=== PATIENT | female | born 1960 | race Caucasian/White ===

== ENCOUNTER 2017-02-15 16:03 | Inpatient (IN) ==
--- NOTE | 2017-02-15 16:21 | Emergency Department Note ---
Disposition Clinical Impression: Alcohol abuse, Opioid abuse, Tobacco abuse, Hyponatremia Disposition: Admitted As Inpatient Condition: Fair General Adult HPI - General Chief complaint: ED Alcohol Abuse Stated complaint: withdrawal from etoh and suboxone Time Seen by Provider: 02/15/17 16:16 Source: patient, family Limitations: no limitations - History of Present Illness Pain Scale: 0 - Related Data Home Medications Medication Instructions Recorded Confirmed Albuterol Sulfate 8.5 gm QID 05/14/15 05/14/15 Buspirone 15 mg PO BID 05/14/15 05/14/15 Inderal 10 mg PO BID 05/14/15 05/14/15 Lisinopril 10 mg PO DAILY 05/14/15 05/14/15 Previous Rx's Medication Instructions Recorded Albuterol Neb [Proventil Neb] 2.5 mg IH Q4HR PRN #0 inhsol 05/19/15 Escitalopram [Lexapro] 10 mg PO HS #30 tablet 05/19/15 Gabapentin [Neurontin] 600 mg PO TID #90 capsule 05/19/15 HydrOXYzine Pamoate 25 mg PO TID PRN #90 capsule 05/19/15 Omeprazole 40 mg PO BID #60 05/19/15 Allergies Allergy/AdvReac Type Severity Reaction Status Date / Time No Known Allergies Allergy Verified 05/14/15 17:17 Past Medical History - Past Medical History Medical history: Reports: COPD, hypertension, osteoporosis Surgical history: Reports: hip replacement, other Psychiatric history: Reports: anxiety, depression 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 - Social History Smoking Status: Current every day smoker Smokeless Tobacco Status: No Alcohol use: Reports: heavy, recent Drug use: Reports: none, cocaine, opiates, methamphetamine Physical Exam - General Limitations: no limitations General appearance: alert Course Vital Signs Temperature 98 F 02/15/17 16:09 Pulse Rate 76 02/15/17 16:09 Respiratory Rate 18 02/15/17 16:09 Blood Pressure 125/79 02/15/17 16:09 O2 Sat by Pulse Oximetry 100 02/15/17 16:09 Temperature 98 F 02/15/17 16:09 Pulse Rate 71 02/15/17 17:23 Respiratory Rate 0 02/15/17 18:42 Blood Pressure 0/0 02/15/17 18:42 O2 Sat by Pulse Oximetry 96 02/15/17 17:23 Oxygen Delivery Oxygen Delivery Room Air Medical Decision Making - Lab Data Result diagrams: 02/15/17 16:34 02/15/17 16:34 Lab Results 02/15/17 02/15/17 Range/Units 16:34 16:34 WBC 8.8 (4.3-11.1) K/mcL RBC 5.32 H (3.82-4.97) M/mcL Hgb 16.5 H (11.5-15.4) g/dL Hct 49.1 H (35.3-44.9) % MCV 92.3 (83.0-100.0) fL MCH 31.0 (28.0-33.3) pg MCHC 33.6 (31.6-35.5) g/dL RDW 14.1 (11.5-14.5) % Plt Count 325 (140-400) K/mcL MPV 9.8 (9.4-12.4) fL Immature Gran % 0.8 (0-4) % Seg Neutrophils % 70.9 % Lymphocytes % 18.7 % Monocytes % 7.9 % Eosinophils % 0.9 % Basophils % 0.8 % Neutrophils # 6.3 (1.6-8.9) K/mcL Lymphocytes # 1.7 (0.6-4.6) K/mcL Monocytes # 0.7 (0.0-1.3) K/mcL Eosinophils # 0.1 (0.0-0.6) K/mcL Basophils # 0.1 (0.0-0.2) K/mcL Sodium 127 L (136-145) mEq/L Potassium 4.4 (3.5-4.5) mEq/L Chloride 92 L (98-109) mEq/L Carbon Dioxide 23 (19-29) mEq/L BUN 5 L (7-20) mg/dL Creatinine 0.66 (0.57-1.11) mg/dL Est GFR ( Amer) > 60 (> 60) Est GFR (Non-Af Amer) > 60 (> 60) BUN/Creatinine Ratio 8 (6-26) Glucose 88 (70-99) mg/dL Calculated Osmolality 261 L (280-300) Calcium 8.9 (8.6-10.8) mg/dL Phosphorus 4.3 (2.3-4.7) mg/dL Magnesium 1.8 (1.6-2.6) mg/dL Total Bilirubin 0.6 (0.2-1.2) mg/dL AST 40 H (5-34) Units/L ALT 14 (0-55) Units/L Alkaline Phosphatase 116 (38-126) Units/L Serum Total Protein 7.6 (6.0-8.3) g/dL Albumin 3.8 (3.5-5.0) g/dL Globulin 3.8 H (2.4-3.5) g/dL Albumin/Globulin Ratio 1.0 L (1.1-2.2) Salicylates < 5.0 L (15-30) mg/dL Acetaminophen < 1.0 L (10-30) mcg/mL Ethyl Alcohol 211 H (0-10) mg/dL Attestation Statement - Attestation Attestation: I examined this patient and my medical decision-making was reviewed with the PHARMACY STOCK CLERK/PA/Advanced Practice Nurse/Resident Physician. I agree with the documented findings, disposition and treatment plan as described except to the extent set forth below. [id number] time provided Patient states she no longer wants to drink alcohol or take Suboxone. She denies a previous history of delirium tremens. Appears slightly tremulous on exam. Daughter at bedside
[2017-02-15] MEDS ORDERED: 0.9 % Sodium Chloride 1,000 ML IVC ONE (16:29)
[2017-02-15] MEDS ORDERED: Ondansetron 4 MG/2 ML VIAL IVP ONE (16:30)
[2017-02-15] MEDS ORDERED: diazePAM 5 MG TABLET PO ONE (16:32)
--- NOTE | 2017-02-15 16:35 | Emergency Department Note ---
Disposition Clinical Impression: Alcohol abuse, Opioid abuse, Tobacco abuse, Hyponatremia Disposition: Admitted As Inpatient Condition: Fair Time of Disposition: 17:58 Alcohol HPI - General Chief Complaint: ED Alcohol Abuse Stated Complaint: withdrawal from etoh and suboxone Time Seen by Provider: 02/15/17 16:16 Source: patient, family Mode of arrival: ambulatory Limitations: no limitations Nursing Notes Reviewed: Yes Vital Signs Reviewed: Yes - History of Present Illness HPI Narrative: 56-year-old female history of opioids was out all use presents for evaluation requesting withdrawal. Patient notes that she is withdrawing from Suboxone. Notes her last Suboxone dose was approximately for 5 days ago. Patient is not prescribed Suboxone and buys it on the street. Patient does have a history of oral opioid medications. Patient also states that she has a history of abuse was 68 beers a day. Patient notes that she drank earlier today. Patient states she is requesting help with withdrawal. Reports some nausea no symptoms of emesis. No chest pain but chronic dyspnea. No abdominal pain. Patient denies any SI or HI. Patient does have a history of hypertension tobacco use. No history of cardiac disease or diabetes. - Related Data Home Medications Medication Instructions Recorded Confirmed Albuterol Sulfate 8.5 gm QID 05/14/15 05/14/15 Buspirone 15 mg PO BID 05/14/15 05/14/15 Inderal 10 mg PO BID 05/14/15 05/14/15 Lisinopril 10 mg PO DAILY 05/14/15 05/14/15 Previous Rx's Medication Instructions Recorded Albuterol Neb [Proventil Neb] 2.5 mg IH Q4HR PRN #0 inhsol 05/19/15 Escitalopram [Lexapro] 10 mg PO HS #30 tablet 05/19/15 Gabapentin [Neurontin] 600 mg PO TID #90 capsule 05/19/15 HydrOXYzine Pamoate 25 mg PO TID PRN #90 capsule 05/19/15 Omeprazole 40 mg PO BID #60 05/19/15 Allergies Allergy/AdvReac Type Severity Reaction Status Date / Time No Known Allergies Allergy Verified 05/14/15 17:17 All systems ED: reviewed and negative except as stated. Constitutional: Reports: as per HPI. Denies: fever Eyes: Reports: as per HPI ENT ED: Reports: as per HPI Cardiovascular: Reports: as per HPI. 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 - Social History Smoking Status: Current every day smoker Smokeless Tobacco Status: No Alcohol use: Reports: heavy, recent Drug use: Reports: none, cocaine, opiates, methamphetamine Physical Exam - General Limitations: no limitations General appearance: alert, in no apparent distress - Head Head exam: atraumatic, normocephalic, normal inspection - Eye Eye exam: Present: normal appearance, PERRL, EOMI - ENT ENT exam: normal exam, mucous membranes moist - Neck Neck exam: Present: normal inspection, trachea midline - Chest Chest inspection: Present: normal inspection, symmetric chest wall rise - Respiratory Respiratory exam: Present: normal lung sounds bilaterally. Absent: respiratory distress - Cardiovascular Cardiovascular exam: Present: regular rate, normal rhythm - Abdominal Exam Abdominal exam: Present: soft, Non-Tender - Extremities Exam Extremities exam: Present: normal inspection. Absent: pedal edema - Back Exam Back exam: Present: normal inspection - Neurological Exam Neurological exam: Present: alert, oriented X3, CN II-XII intact - Skin Skin exam: Present: warm, dry, intact, normal color Course Course Narrative: Patient seen and examined. Patient's in no acute distress. Concerns for potential withdrawal. Patient is getting basic lab work including EKG, IV fluids, folic acid and thiamine. Patient is also given 5 mg of Valium by mouth. - Reevaluation(s) Reevaluation #1: On repeat evaluation. The daughter at bedside states that she is concerned about the patient's well-being. Daughter states the patient did express that she wished to harm herself and did not care if she . Patient does not confirm or deny that comment. Daughter states that she does live at home alone. Daughter requests a psychiatric evaluation. Time: 17:23 Reevaluation #2: Patient initially did not want to be admitted. Patient wanted to smoke. Daughter did not feel comfortable taking the patient home. Patient does have an elevated alcohol level cannot be medically cleared. Patient was given a nicotine patch. Patient is not medically cleared for psychiatric evaluation. Discussed with the hospitalist who accepted the patient. Patient will be admitted to the hospitalist for with subsequent medical clearance and psychiatric evaluation. Time: 17:56 Vital Signs Temperature 98 F 02/15/17 16:09 Pulse Rate 76 02/15/17 16:09 Respiratory Rate 18 02/15/17 16:09 Blood Pressure 125/79 02/15/17 16:09 O2 Sat by Pulse Oximetry 100 02/15/17 16:09 Temperature 98 F 02/15/17 16:09 Pulse Rate 71 02/15/17 17:23 Respiratory Rate 16 02/15/17 17:23 Blood Pressure 115/74 02/15/17 17:23 O2 Sat by Pulse Oximetry 96 02/15/17 17:23 Oxygen Delivery Oxygen Delivery Room Air Alcohol - MDM Narrative Medical decision making narrative: 56-year-old female history of substance abuse including opiates as well as alcohol process for evaluation requesting withdrawal. Patient states she last drank alcohol earlier today in the last use Suboxone approximately 4-5 days ago. Patient denied any history of SI or HI. However the daughter at bedside states she has concern about the patient's health. Concern that the patient made her herself. Patient received screening laboratory evaluation. Found to be hyponatremic likely related to alcohol use. Patient was given folic acid as well as thiamine. Patient was also given a nicotine patch and Valium. Patient' s symptoms improved. Patient had a screening EKG. Daughter is requesting psychiatric evaluation. Patient's alcohol level is elevated and will need the patient medically cleared prior to psychiatric evaluation. Patient initially wanted to leave AGAINST MEDICAL ADVICE, however the daughter did not fill comfortable taking the patient home. The patient will be admitted for hospital monitoring and subsequent medical clearance and psychiatric evaluation. - Lab Data Lab results reviewed: Yes I reviewed the patient's lab results. Result diagrams: 02/15/17 16:34 02/15/17 16:34 Lab Results 02/15/17 02/15/17 Range/Units 16:34 16:34 WBC 8.8 (4.3-11.1) K/mcL RBC 5.32 H (3.82-4.97) M/mcL Hgb 16.5 H (11.5-15.4) g/dL Hct 49.1 H (35.3-44.9) % MCV 92.3 (83.0-100.0) fL MCH 31.0 (28.0-33.3) pg MCHC 33.6 (31.6-35.5) g/dL RDW 14.1 (11.5-14.5) % Plt Count 325 (140-400) K/mcL MPV 9.8 (9.4-12.4) fL Immature Gran % 0.8 (0-4) % Seg Neutrophils % 70.9 % Lymphocytes % 18.7 % Monocytes % 7.9 % Eosinophils % 0.9 % Basophils % 0.8 % Neutrophils # 6.3 (1.6-8.9) K/mcL Lymphocytes # 1.7 (0.6-4.6) K/mcL Monocytes # 0.7 (0.0-1.3) K/mcL Eosinophils # 0.1 (0.0-0.6) K/mcL Basophils # 0.1 (0.0-0.2) K/mcL Sodium 127 L (136-145) mEq/L Potassium 4.4 (3.5-4.5) mEq/L Chloride 92 L (98-109) mEq/L Carbon Dioxide 23 (19-29) mEq/L BUN 5 L (7-20) mg/dL Creatinine 0.66 (0.57-1.11) mg/dL Est GFR ( Amer) > 60 (> 60) Est GFR (Non-Af Amer) > 60 (> 60) BUN/Creatinine Ratio 8 (6-26) Glucose 88 (70-99) mg/dL Calculated Osmolality 261 L (280-300) Calcium 8.9 (8.6-10.8) mg/dL Phosphorus 4.3 (2.3-4.7) mg/dL Magnesium 1.8 (1.6-2.6) mg/dL Total Bilirubin 0.6 (0.2-1.2) mg/dL AST 40 H (5-34) Units/L ALT 14 (0-55) Units/L Alkaline Phosphatase 116 (38-126) Units/L Serum Total Protein 7.6 (6.0-8.3) g/dL Albumin 3.8 (3.5-5.0) g/dL Globulin 3.8 H (2.4-3.5) g/dL Albumin/Globulin Ratio 1.0 L (1.1-2.2) Salicylates < 5.0 L (15-30) mg/dL Acetaminophen < 1.0 L (10-30) mcg/mL Ethyl Alcohol 211 H (0-10) mg/dL - EKG Data EKG attestation: Yes I reviewed and interpreted this EKG. EKG shows normal: sinus rhythm Rate: normal Rhythm: NSR [place]/QRS: normal Q waves: v1, v2, v3 Interpretation: no acute changes, unchanged when compared to prior tracing (date ) (2011) Katheryn - Katheryn Situation: Demographics Background: Presenting Complaint Assessment: Vital Signs, Course and respsone to treatment, Patient/Family Expectation Recommendation: Barrier(s) to disposition, Recommendation based on pending studies, treatments, or consults SNeena Report Given to: Dr. Carlos Campa Repor Time: 17:57
[2017-02-15] MEDS: Thiamine (B-1) 100 MG TABLET PO SCH (16:43)
[2017-02-15] MEDS: Folic Acid 1 MG TABLET PO SCH (16:43)
[2017-02-15 16:51] LABS: Basophils # 0.1 K/mcL (0.0-0.2); Basophils % 0.8 %; Eosinophils # 0.1 K/mcL (0.0-0.6); Eosinophils % 0.9 %; Hematocrit 49.1 % (35.3-44.9); Hemoglobin 16.5 g/dL (11.5-15.4); Immature Granulocytes % 0.8 % (0-4); Lymphocytes # 1.7 K/mcL (0.6-4.6); Lymphocytes % 18.7 %; Mean Corpuscular HGB Conc 33.6 g/dL (31.6-35.5); Mean Corpuscular Volume 92.3 fL (83.0-100.0); Mean Platelet Volume 9.8 fL (9.4-12.4); Monocytes # 0.7 K/mcL (0.0-1.3); Monocytes % 7.9 %; Neutrophils # 6.3 K/mcL (1.6-8.9); Platelet Count 325 K/mcL (140-400); Red Blood Count 5.32 M/mcL (3.82-4.97); Red Cell Distribution Width 14.1 % (11.5-14.5); Segmented Neutrophils % 70.9 %
[2017-02-15 17:05] LABS: Alanine Aminotransferase 14 Units/L (0-55); Albumin 3.8 g/dL (3.5-5.0); Alkaline Phosphatase 116 Units/L (38-126); Aspartate Amino Transferase 40 Units/L (5-34); BUN/Creatinine Ratio 8 (6-26); Bilirubin,Total 0.6 mg/dL (0.2-1.2); Calcium 8.9 mg/dL (8.6-10.8); Carbon Dioxide 23 mEq/L (19-29); Chloride 92 mEq/L (98-109); Ethanol 211 mg/dL (0-10); Globulin 3.8 g/dL (2.4-3.5); Glucose 88 mg/dL (70-99); Magnesium 1.8 mg/dL (1.6-2.6); Osmolality,Calculated 261 (280-300); Phosphorous 4.3 mg/dL (2.3-4.7); Potassium 4.4 mEq/L (3.5-4.5); Sodium 127 mEq/L (136-145); Total Protein 7.6 g/dL (6.0-8.3); eGFR For African Americans > 60 (> 60); eGFR For Non-African Americans > 60 (> 60)
[2017-02-15 17:07] LABS: Blood Urea Nitrogen 5 mg/dL (7-20)
[2017-02-15 17:40] LABS: Acetaminophen < 1.0 mcg/mL (10-30); Salicylate < 5.0 mg/dL (15-30)
[2017-02-15] MEDS ORDERED: Naloxone 0.4 MG/ML INJ IVP PRN (19:47)
[2017-02-15] MEDS ORDERED: *HR* Promethazine 25 MG/ML VIAL IVP PRN (19:52)
[2017-02-15] MEDS ORDERED: *HR* LORazepam 2 MG/ML VIAL IVP PRN ×2 (19:52)
--- NOTE | 2017-02-15 20:13 | Internal Med History&Physical ---
Date of Encounter: 02/15/17 Time of Encounter: 18:30 Assessment and Plan (1) Alcohol withdrawal Current visit: Yes Status: Acute 1 patient with approximately 6-8 beers daily last drink was approximately 3 PM today. -Presently she is tremulous we will initiate CIWA protocol given Ativan as needed [address] on seizure precautions 3 social service consult 4 thiamine and folate 5 aspiration precautions Qualifiers: Complication of substance-induced condition: uncomplicated Qualified Code(s ): F10.230 - Alcohol dependence with withdrawal, uncomplicated (2) Suicidal risk Current visit: Yes Status: Acute 1 suicide precautions-patient is high risk for suicide- she has made an attempt in the past. She has voiced to her daughter she wants to harm herself- she does not deny or confirm that she made the statement; she has been very depressed and unable to care for herself and has been drinking a lot. She has thought about harming herself in the past, presently she denies wanting to harm herself. 2 consult psychiatry (3) COPD (chronic obstructive pulmonary disease) Current visit: No Status: Chronic 1 encouraged patient to stop smoking 2 bronchodilators 3 oxygen as needed Qualifiers: COPD type: unspecified COPD Qualified Code(s): J44.9 - Chronic obstructive pulmonary disease, unspecified (4) Depression Current visit: Yes Status: Acute 1 patient states that she has been very depressed unable to care for herself she states she drinks all the time and is unable to eat-she is presently on BuSpar which we will continue 2 we will consult psychiatry Qualifiers: Depression Type: unspecified Qualified Code(s): F32.9 - Major depressive disorder, single episode, unspecified (5) Protein calorie malnutrition Current visit: No Status: Acute 1consult dietary (6) Opioid abuse Current visit: Yes Status: Acute 1patient states that she uses/eyes Suboxone off the street. She states she last used approximate 5 days ago. We will monitor for withdrawals (7) Hyponatremia Current visit: Yes Status: Acute Presently patient's sodium levels 127-most likely related to alcohol use- we will continue to monitor sodium 2 we will give 0.9ns (8) DVT prophylaxis Current visit: No Status: Acute lovenox (9) Tobacco abuse Current visit: Yes Status: Acute encouraged patient to stop smoking-nicotine patch provided Internal Medicine - H&P: HPI Chief complaint: ETOH withdrawal Admitted From: Emergency Dept Plans for Post Hospital Care: Transfer Psych Facility History of present illness: Ms. Bo is a 56 year old female past medical hx of COPD HTN depression. Information obtained from medical records as well as patient. The patient has been drinking approximate 6-8 beers daily as well as using Suboxone that she purchases off the street. Her last drink was approximately 3 PM she states she Suboxone approximately 4/5 days ago. Her daughter became concerned about the patient's [id number] patient stated she did not want drink or use Suboxone anymore. According to the daughter the patient did express that she wished to harm herself and did not care if she , she was brought into the ER for evaluation. When questioned by the ER physician concerning harming herself the patient would not confirm or deny that she made the comment. Lab work was obtained which did reveal alcohol level of 211. Patient was hyponatremic at 127 there is no leukocytosis Mag was 1.8 phosphorus was 4.3. According to ER records patient was slightly tremulous upon arrival she was given thiamine and has been admitted for further workup and evaluation. She has had a past history of substance and alcohol abuse. She was hospitalized approximately year ago for alcohol withdrawal and she states she was clean for approximately 6 months. However lately she has not been able to function. She states that she is sad and unable to get out of bed and does not eat and only consumes alcohol. She has had past thoughts of harming herself, however does not have a plan. She did overdose with BuSpar in the past. When asked if she wants to harm herself now she does not answer, and shakes head no . During assessment patient is slightly tremulous and crying. Her lung sounds are clear and diminished heart sounds are regular S1 and S2 with no rubs gallops or murmurs noted abdomen soft nontender no lower extremity edema noted patient is very cachectic and ill-appearing. I reviewed this case with Dr. Gallegos who agrees with plan Past Med Surg Social Fam HX - Past Medical History Medical history: COPD, hypertension, osteoporosis Psychiatric history: anxiety, depression - Past Surgical History Surgical History: hip replacement, other - Social History Smoking Status: Current every day smoker Smokeless Tobacco Status: No Alcohol use: heavy, recent Drug use: none, cocaine, opiates, methamphetamine - Family History Father Adopted: No Living Status: Hx Family Cardiac Disorders: Yes Hx Family Respiratory Disorders: Yes Hx Family Cancer: Yes (lung) Internal Medicine - H&P: Meds Albuterol Sulfate 8.5 gm QID 05/14/15 [History] Buspirone 15 mg PO BID 05/14/15 [History] Inderal 10 mg PO BID 05/14/15 [History] Lisinopril 10 mg PO DAILY 05/14/15 [History] Albuterol Neb [Proventil Neb] 2.5 mg IH Q4HR PRN #0 inhsol 05/19/15 [Rx] Escitalopram [Lexapro] 10 mg PO HS #30 tablet 05/19/15 [Rx] Gabapentin [Neurontin] 600 mg PO TID #90 capsule 05/19/15 [Rx] HydrOXYzine Pamoate 25 mg PO TID PRN #90 capsule 05/19/15 [Rx] Omeprazole 40 mg PO BID #60 05/19/15 [Rx] Allergies No Known Allergies Allergy (Verified 05/14/15 17:17) All Systems PM: A 10-system review of systems was performed and is negative for pertinent findings except as documented above in the HPI. - Constitutional Constitutional: weight loss, no chills, no fever(s), no night sweats - EENT Eyes: no change in vision, no discharge, no pain, no photophobia Ears: no ear discharge, no ear pain, no tinnitus Nose, mouth and throat: no dysphagia, no nasal discharge, no neck pain, no sore throat - Cardiovascular Cardiovascular ROS IM: no chest pain, no diaphoresis, no dyspnea, no lightheadedness, no palpitations, no syncope - Respiratory Respiratory: no cough, no dyspnea, no wheezing, no excessive phlegm production - Gastrointestinal Gastrointestinal: abdominal pain, diarrhea, no hematemesis, no hematochezia, no melena, no nausea, no vomiting - Genitourinary Genitourinary: no change in urinary stream, no dysuria, no flank pain, no hematuria - Musculoskeletal Musculoskeletal ROS IM: no numbness, no tingling - Integumentary Integumentary IM: no rash, no unusual bruising - Neurological Neurological ROS: no confusion, no convulsions, no focal weakness, no numbness, no tingling, no tremor(s) - Hematologic/Lymphatic Hematologic/Lymphatic: no easy bruising - Constitutional Vitals: Temp Pulse Resp BP Pulse Ox 98.6 F 70 15 92/60 96 02/15/17 18:56 02/15/17 18:56 02/15/17 18:56 02/15/17 18:56 02/15/17 18:56 General appearance: Present: cachectic, A&O X 3 - Head Head exam: Present: atraumatic, normocephalic - Eye Eye exam: Present: PERRL, conjuntiva pink, sclera anicteric Pupils: Present: PERRL - Neck Neck exam general surgery: Present: supple, trachea midline. Absent: lymphadenopathy - Respiratory Respiratory exam: Present: decreased breath sounds, CTAB. Absent: accessory muscle use, rales, rhonchi, wheezes - Cardiovascular Cardiovascular exam: Present: RRR, +S1, +S2. Absent: diastolic murmur, gallop, rubs, systolic murmur - GI/Abdominal GI/Abdominal exam: Present: normal bowel sounds, soft, no peritoneal signs. Absent: distended, tenderness - Extremities Exam Extremities exam: Present: warm, radial pulses palpable and symetrical. Absent : calf tenderness, cyanotic, pedal edema - Neurological Exam Neurological exam: Present: CN II-XII intact, oriented X3, no focal deficits. Absent: pronater drift, facial droop, speech deficit - Skin Skin exam: Present: dry, intact Internal Med - H&P Results - Labs CBC & Chem 7: 02/15/17 16:34 02/15/17 16:34
[2017-02-15] MEDS: Nicotine 21 MG PATCH.TD24 TD SCH (20:22)
[2017-02-15] MEDS: *HR* LORazepam 2 MG/ML VIAL IVP PRN (20:39)
[2017-02-15] MEDS ORDERED: *HR* LORazepam 0.5 MG TABLET PO ONE (20:49)
[2017-02-15] MEDS: 0.9 % Sodium Chloride 1,000 ML IVC SCH (23:05)
[2017-02-16 03:45] LABS: Basophils # 0.1 K/mcL (0.0-0.2); Basophils % 0.8 %; Eosinophils # 0.1 K/mcL (0.0-0.6); Eosinophils % 1.9 %; Hematocrit 46.3 % (35.3-44.9); Hemoglobin 15.6 g/dL (11.5-15.4); Immature Granulocytes % 0.9 % (0-4); Lymphocytes # 1.9 K/mcL (0.6-4.6); Mean Corpuscular HGB Conc 33.7 g/dL (31.6-35.5); Mean Corpuscular Hemoglobin 31.8 pg (28.0-33.3); Mean Corpuscular Volume 94.5 fL (83.0-100.0); Mean Platelet Volume 10.3 fL (9.4-12.4); Neutrophils # 4.3 K/mcL (1.6-8.9); Platelet Count 267 K/mcL (140-400); Red Cell Distribution Width 14.3 % (11.5-14.5); Segmented Neutrophils % 57.4 %
[2017-02-16 03:46] LABS: BUN/Creatinine Ratio 16 (6-26); Blood Urea Nitrogen 12 mg/dL (7-20); Calcium 8.3 mg/dL (8.6-10.8); Carbon Dioxide 21 mEq/L (19-29); Chloride 105 mEq/L (98-109); Glucose 208 mg/dL (70-99); Osmolality,Calculated 286 (280-300); Phosphorous 3.7 mg/dL (2.3-4.7); Potassium 4.7 mEq/L (3.5-4.5); eGFR For African Americans > 60 (> 60); eGFR For Non-African Americans > 60 (> 60)
[2017-02-16 03:57] LABS: Sodium 135 mEq/L (136-145)
[2017-02-16] MEDS: *HR* Enoxaparin 40 MG/0.4 ML SYRINGE SQ SCH (05:59)
[2017-02-16] MEDS: Folic Acid 1 MG TABLET PO SCH ×2 (08:18→08:25)
[2017-02-16] MEDS: Thiamine (B-1) 100 MG TABLET PO SCH ×2 (08:19→08:25)
[2017-02-16] MEDS: Nicotine 21 MG PATCH.TD24 TD SCH (08:25)
[2017-02-16] MEDS ORDERED: Albuterol 2.5 MG/3 ML NEBULIZER IH PRN (08:51)
[2017-02-16] MEDS ORDERED: hydrOXYzine pamoate 25 MG CAPSULE PO PRN (08:51)
[2017-02-16] MEDS: Gabapentin 400 MG CAPSULE PO SCH ×3 (09:09→20:01)
[2017-02-16 09:44] LABS: Amphetamine Screen,Urine Negative ng/mL (Cutoff=1000); Barbiturate Screen,Urine Negative ng/mL (Cutoff=200); Benzodiazepines Screen,Urine Positive ng/mL (Cutoff=200); Cannabinoid Screen,Urine Negative ng/mL (Cutoff = 50); Cocaine Screen,Urine Negative ng/mL (Cutoff= 300); Opiate Screen,Urine Negative ng/mL (Cutoff=300); Phencyclidine Screen,Urine Negative ng/mL (Cutoff=25)
--- NOTE | 2017-02-16 12:21 | Consult Note ---
Date of Encounter: 02/16/17 Time of Encounter: 11:30 Assessment & Recommendation (1) Major depressive disorder, recurrent severe without psychotic features Current visit: Yes Status: Acute Assessment & Recommendation: Patient was reporting suicidal ideation to daughter prior to admission. She now denies active suicidal ideation but does feel hopeless about her life and also has not been caring for herself and eating or drinking properly at home. She will require inpatient psychiatric stabilization. She is a possible flight risk and we will leave one to one observation until patient is medically stable. Hold onto titrating medications until she is medically stable. Continue Lexapro for depression for now. (2) Anxiety Current visit: Yes Status: Acute Assessment & Recommendation: Continue BuSpar. (3) Alcohol dependence Current visit: No Status: Chronic Assessment & Recommendation: Agree with CIWA protocol. Consider switching to by mouth Valium if patient does not respond well to the Ativan. Qualifiers: Substance use status: uncomplicated Qualified Code(s): F10.20 - Alcohol dependence, uncomplicated (4) Opioid abuse Current visit: Yes Status: Acute Assessment & Recommendation: We will encourage patient to discontinue opiate use. Consider rehabilitation or outpatient treatment for substance abuse. History of Present Illness Patient: known to practice within the last 3 years Requesting Physician: Deepika Cruz History of present illness: Ms. Bo is a 56 year old female with a long-standing history of alcohol dependence opiate dependence, depression, anxiety. She is presented to the hospital intoxicated brought by her daughter who had concerns about her mental state. Patient reports that she was intoxicated and feeling hopeless about her life. She did state that she made comments to her daughter about wanting to . Patient states that over the past few months a lot of negative things have happened. She quit her job at [employer] because she did not have transportation. She has been unable to seek regular medical care for the same reason. Patient's car is nonfunctioning and she recently was told she will be evicted from her home. Her daughter recently moved out a couple of months ago and that has been a difficult transition for her. Patient's 15-year-old son was getting into some trouble and has been staying at his father's place in the country this summer and the patient has not been able to see him. All of these various stressors together have caused the patient to feel very depressed. Initially she states that she is not sure she is depressed. However, she admits to not eating and not taking care of herself. She reports she drinks about 6-8 beers a day. She reports that she was suicidal but denies active thoughts of wanting to hurt herself now. However she does feel hopeless about her future and is not sure that anything can make it better. She has a lot of guilt about being unable to care for her son and being unable to provide for herself financially. She denies auditory or visual hallucinations. She denies obsessions, delusions, paranoia. She has one previous admission for suicide attempt roughly 2 years ago. CC: Deepika Cruz Past Med Surg Social Fam HX - Past Medical History Medical history: COPD, hypertension, osteoporosis - Past Psychiatric History Psychiatric history: Reports: depression, previous psychiatric hospitalization Past psychiatric history details: One previous suicide attempts and one previous psychiatric admission 2 years ago. No significant follow-up after her admission. Family psychiatric history: No Family History of Suicide: None - Past Surgical History Surgical History: hip replacement, other - Social History Smoking Status: Current every day smoker Smokeless Tobacco Status: No Alcohol use: heavy, recent Drug use: none, cocaine, opiates, methamphetamine Occupational status: unemployed - Family History Father History Unknown: Yes Adopted: No Living Status: Hx Family Cardiac Disorders: Yes Hx Family Respiratory Disorders: Yes Hx Family Cancer: Yes (lung) Medications & Allergies Buspirone HCl [Buspar] 15 mg PO BID #0 05/14/15 [History] Lisinopril [Zestril] 10 mg PO DAILY #0 05/14/15 [History] BuPROPion SR (12 HR) [Wellbutrin SR] 150 mg PO BID 02/16/17 [History] Gabapentin [Neurontin] 800 mg PO TID 02/16/17 [History] Ipratropium/Albuterol Neb [Duoneb] 3 ml IH Q6HR 02/16/17 [History] Omeprazole [PriLOSEC] 40 mg PO DAILY 02/16/17 [History] Paroxetine HCl [Paxil] 40 mg PO DAILY 02/16/17 [History] Propranolol HCl [Innopran Xl] 120 mg PO DAILY 02/16/17 [History] Allergies No Known Allergies Allergy (Verified 05/14/15 17:17) Review of Systems Constitutional: Reports: weight change Respiratory: Reports: cough Gastrointestinal: Reports: nausea Musculoskeletal: Reports: back pain, joint pain, myalgia Neurological: Reports: headache, weakness Psychiatric: Reports: depression, anxiety, abnormal sleep pattern, hopelessness. Denies: suicidal ideation, auditory hallucinations, visual hallucinations Mental Status Exam Patient orientation: Yes Person, Yes Time, Yes Place Level of alertness: Sedated Patient appearance: Unkempt, Thin Behavior: calm, cooperative Psychomotor activity: Slowed Eye contact: Minimal Contact Mood description: Depressed Affect description: flat Speech pattern: Normal rate, Normal rhythm, Normal tone Speech volume: Soft/Quiet Thought content: Yes Intact, No Suicidal ideation, No Homicidal ideation Perceptual disturbances: No Auditory hallucinations, No Visual hallucinations Attention span: Capable of Focused Attention Patient reliability: Questionable Historian Intelligence estimate: Average Judgment: Limited Insight: Minimal Results - Vital Signs Vital signs: Temp Pulse Resp BP Pulse Ox 97.7 F 75 14 131/77 94 02/16/17 00:11 02/16/17 11:27 02/16/17 11:27 02/16/17 11:27 02/16/17 11:27 - Drug Levels and Toxicology Drug Levels and Toxicology: Drug Levels and Toxicity 02/16/17 09:15 Urine Opiates Screen Negative Ur Barbiturates Screen Negative Ur Phencyclidine Scrn Negative Ur Amphetamines Screen Negative U Benzodiazepines Scrn Positive H Urine Cocaine Screen Negative U Marijuana (THC) Screen Negative - Labs Labs: Laboratory Last Values WBC 7.4 K/mcL (4.3-11.1) 02/16/17 02:42 RBC 4.90 M/mcL (3.82-4.97) 02/16/17 02:42 Hgb 15.6 g/dL (11.5-15.4) H 02/16/17 02:42 Hct 46.3 % (35.3-44.9) H 02/16/17 02:42 MCV 94.5 fL (83.0-100.0) 02/16/17 02:42 MCH 31.8 pg (28.0-33.3) 02/16/17 02:42 MCHC 33.7 g/dL (31.6-35.5) 02/16/17 02:42 RDW 14.3 % (11.5-14.5) 02/16/17 02:42 Plt Count 267 K/mcL (140-400) 02/16/17 02:42 MPV 10.3 fL (9.4-12.4) 02/16/17 02:42 Immature Gran % 0.9 % (0-4) 02/16/17 02:42 Seg Neutrophils % 57.4 % 02/16/17 02:42 Lymphocytes % 25.0 % 02/16/17 02:42 Monocytes % 14.0 % 02/16/17 02:42 Eosinophils % 1.9 % 02/16/17 02:42 Basophils % 0.8 % 02/16/17 02:42 Neutrophils # 4.3 K/mcL (1.6-8.9) 02/16/17 02:42 Lymphocytes # 1.9 K/mcL (0.6-4.6) 02/16/17 02:42 Monocytes # 1.0 K/mcL (0.0-1.3) 02/16/17 02:42 Eosinophils # 0.1 K/mcL (0.0-0.6) 02/16/17 02:42 Basophils # 0.1 K/mcL (0.0-0.2) 02/16/17 02:42 Sodium 135 mEq/L (136-145) L D 02/16/17 02:42 Potassium 4.7 mEq/L (3.5-4.5) H 02/16/17 02:42 Chloride 105 mEq/L (98-109) 02/16/17 02:42 Carbon Dioxide 21 mEq/L (19-29) 02/16/17 02:42 BUN 12 mg/dL (7-20) 02/16/17 02:42 Creatinine 0.76 mg/dL (0.57-1.11) 02/16/17 02:42 Est GFR ( Amer) > 60 (> 60) 02/16/17 02:42 Est GFR (Non-Af Amer) > 60 (> 60) 02/16/17 02:42 BUN/Creatinine Ratio 16 (6-26) 02/16/17 02:42 Glucose 208 mg/dL (70-99) H 02/16/17 02:42 POC Glucose 157 (58-89) H 02/16/17 11:26 Calculated Osmolality 286 (280-300) 02/16/17 02:42 Calcium 8.3 mg/dL (8.6-10.8) L 02/16/17 02:42 Phosphorus 3.7 mg/dL (2.3-4.7) 02/16/17 02:42 Magnesium 1.8 mg/dL (1.6-2.6) 02/15/17 16:34 Total Bilirubin 0.6 mg/dL (0.2-1.2) 02/15/17 16:34 AST 40 Units/L (5-34) H 02/15/17 16:34 ALT 14 Units/L (0-55) 02/15/17 16:34 Alkaline Phosphatase 116 Units/L (38-126) 02/15/17 16:34 Serum Total Protein 7.6 g/dL (6.0-8.3) 02/15/17 16:34 Albumin 3.8 g/dL (3.5-5.0) 02/15/17 16:34 Globulin 3.8 g/dL (2.4-3.5) H 02/15/17 16:34 Albumin/Globulin Ratio 1.0 (1.1-2.2) L 02/15/17 16:34 Salicylates < 5.0 mg/dL (15-30) L 02/15/17 16:34 Urine Opiates Screen Negative ng/mL (Mjhizt=036) 02/16/17 09:15 Acetaminophen < 1.0 mcg/mL (10-30) L 02/15/17 16:34 Ur Barbiturates Screen Negative ng/mL (Mozbcs=602) 02/16/17 09:15 Ur Phencyclidine Scrn Negative ng/mL (Cutoff=25) 02/16/17 09:15 Ur Amphetamines Screen Negative ng/mL (Msovyr=5323) 02/16/17 09:15 U Benzodiazepines Scrn Positive ng/mL (Jywrkf=212) H 02/16/17 09:15 Urine Cocaine Screen Negative ng/mL (Cutoff= 300) 02/16/17 09:15 U Marijuana (THC) Screen Negative ng/mL (Cutoff = 50) 02/16/17 09:15 Ethyl Alcohol 211 mg/dL (0-10) H 02/15/17 16:34 Consult Discharge Plan - Plan Referrals: NO,PCP [Primary Care Provider] -
--- NOTE | 2017-02-16 14:24 | Internal Med Progress Note ---
Date of Encounter: 02/16/17 Time of Encounter: 09:30 - Assessment and plan (1) Suicidal intent Current Visit: No Status: Resolved Assessment and plan: Patient denies suicidal or homicidal ideations at this time. Patient however does endorse hopelessness and was not willing to answer questions regarding her future. Psychiatry is on board and she will likely be voluntarily admitted down to the psychiatric unit once she is medically cleared. I believe that she is a flight risk, and I do not feel she would be safe to go home. Will keep sitter in place- right now, there is no need for a pink slip as the patient is in agreement with staying. (2) Alcohol withdrawal Current Visit: Yes Status: Acute Assessment and plan: continue CIWA protocol. Patient stating she detoxed 2 years ago. She denies hx of seizures. Her last drink was yesterday. She is unsure if she is motivated to quit at this time Qualifiers: Complication of substance-induced condition: uncomplicated Qualified Code(s ): F10.230 - Alcohol dependence with withdrawal, uncomplicated (3) Extremity cyanosis Current Visit: Yes Status: Chronic Assessment and plan: on examination, patient's hands are cyanotic with cap refill of 3-4 seconds. Her feet are also cyanotic wiwth a cap refill of 5-6 seconds. Her nose is also cyanotic. Patient stating this is normal for her and states she is "always freezing." Likely secondary to poor nutrient intake, tobacco abuse. Will obtain echo. (4) Dehydration Current Visit: No Status: Acute Assessment and plan: acute on chronic; FF and add ensure (5) DVT prophylaxis Current Visit: No Status: Acute Assessment and plan: Subcutaneous Lovenox (6) COPD (chronic obstructive pulmonary disease) Current Visit: No Status: Chronic Assessment and plan: No acute exacerbation. Patient denies shortness of breath above her norm. Qualifiers: COPD type: unspecified COPD Qualified Code(s): J44.9 - Chronic obstructive pulmonary disease, unspecified (7) HTN (hypertension) Current Visit: No Status: Chronic Assessment and plan: Controlled, we will continue to trend (8) Protein calorie malnutrition Current Visit: No Status: Chronic Assessment and plan: severe. Nutrition onboard. Ensure supplements ordered. Patient stating that her only daily intake is 6-8 beers per day. She denies other fluids or food intake. (9) Alcohol use disorder, severe, dependence Current Visit: No Status: Chronic Assessment and plan: continue CIWA (10) Opioid abuse Current Visit: Yes Status: Chronic Assessment and plan: patient stating she buys suboxone off the street. Psych onboard. Concern for possible high risk behavior to afford pills, alcohol and tobacco. Will discuss with patient tomorrow- she did not want to discuss this today. (11) Tobacco abuse Current Visit: Yes Status: Chronic Assessment and plan: declines counseling. nicotine patch (12) Hyponatremia Current Visit: Yes Status: Acute Assessment and plan: improving- held IVF at this time to allow for slower increase. Will trend (13) Major depressive disorder, recurrent severe without psychotic features Current Visit: Yes Status: Acute Assessment and plan: acute on chronic. Psych is onboard. She currently denies suicidal ideation but is hopeless and does not want to discuss her future. Will leave sitter in place. (14) Anxiety Current Visit: Yes Status: Chronic - Subjective Interval history: Patient seen and examined. On examination, patient resting supine in bed. Patient stating she is very sleepy and has a mild headache. She states that she is very shaky. - Constitutional Vitals: Temp Pulse Resp BP Pulse Ox 97.7 F 75 14 131/77 94 02/16/17 00:11 02/16/17 11:27 02/16/17 11:27 02/16/17 11:27 02/16/17 11:27 General appearance: Present: cachectic, A&O X 3, pleasant, no acute distress, answers questions appropriately - Head Head exam: Present: atraumatic, normocephalic. Absent: normal inspection Additional comments: nose is cyanotic - Eye Eye exam: Present: PERRL, conjuntiva pink, sclera anicteric Pupils: Present: PERRL - Neck Neck exam general surgery: Present: trachea midline. Absent: lymphadenopathy, supple - Respiratory Respiratory exam: Present: accessory muscle use, decreased breath sounds. Absent: rales, respiratory distress, rhonchi, wheezes - Cardiovascular Cardiovascular exam: Present: RRR, +S1, +S2. Absent: diastolic murmur, gallop, rubs, systolic murmur - GI/Abdominal GI/Abdominal exam: Present: normal bowel sounds, soft, no peritoneal signs. Absent: distended, tenderness - Extremities Exam Extremities exam: Present: warm, radial pulses palpable and symetrical. Absent : calf tenderness, cyanotic, pedal edema - Expanded Upper Extremities Exam Hand wrist exam: Absent: normal inspection (ecchymotic) Vascular exam: Present: pallor, vascular compromise. Absent: normal capillary refill - Expanded Lower Extremities Exam Foot/Toe exam: Absent: normal inspection (ecchymotic with cap refill 5-6 secs) Neuro vascular tendon exam: Present: extremity cold to touch, pallor. Absent: no vascular compromise - Neurological Exam Neurological exam: Present: alert, CN II-XII intact, oriented X3, no focal deficits, strengths equal and symetr throughout. Absent: pronater drift, facial droop, speech deficit - Skin Skin exam: Present: cyanosis, dry, intact, pallor, warm Internal Medicine: Result - Labs CBC & Chem 7: 02/16/17 02:42 02/16/17 02:42 Labs: Short CBC 02/16/17 Range/Units 02:42 WBC 7.4 (4.3-11.1) K/mcL Hgb 15.6 H (11.5-15.4) g/dL Hct 46.3 H (35.3-44.9) % Plt Count 267 (140-400) K/mcL Neutrophils # 4.3 (1.6-8.9) K/mcL BMP 02/16/17 02:42 Sodium 135 L D Potassium 4.7 H Chloride 105 Carbon Dioxide 21 BUN 12 Creatinine 0.76 Glucose 208 H Calcium 8.3 L Consult Discharge Plan - Plan Referrals: NO,PCP [Primary Care Provider] -
[2017-02-16] MEDS ORDERED: diazePAM 10 MG/2 ML SYRINGE IVP PRN (14:46)
[2017-02-16] MEDS: 0.9 % Sodium Chloride 1,000 ML IVC SCH (21:19)
[2017-02-17 03:38] LABS: BUN/Creatinine Ratio 22 (6-26); Blood Urea Nitrogen 14 mg/dL (7-20); Calcium 8.3 mg/dL (8.6-10.8); Carbon Dioxide 22 mEq/L (19-29); Chloride 107 mEq/L (98-109); Glucose 91 mg/dL (70-99); Osmolality,Calculated 286 (280-300); Potassium 4.3 mEq/L (3.5-4.5); Sodium 138 mEq/L (136-145); eGFR For African Americans > 60 (> 60); eGFR For Non-African Americans > 60 (> 60)
[2017-02-17 04:21] LABS: Thyroid Stimulating Hormone 0.471 mcIU/mL (0.350-4.840)
[2017-02-17] MEDS: *HR* Enoxaparin 40 MG/0.4 ML SYRINGE SQ SCH (06:02)
--- NOTE | 2017-02-17 10:31 | Discharge Summary ---
Date of Encounter: 02/17/17 Time of Encounter: 09:00 - Discharge Diagnosis (1) Suicidal intent Priority: Primary Status: Resolved Comments: Patient denies suicidal or homicidal ideations at this time. Patient however does endorse hopelessness and was not willing to answer questions regarding her future. Psychiatry is on board and she will be voluntarily admitted down to the psychiatric unit today. I believe that she is a flight risk, and I do not feel she would be safe to go home. Will keep sitter in place and transfer her to psychiatric unit for further care. (2) Alcohol withdrawal Priority: Primary Status: Acute Comments: CIWA protocol while admitted- still scoring low. Will start on Librium taper and send to psych. Patient stating she detoxed 2 years ago. She denies hx of seizures- low clinical suspicion for risk of DTs. Qualifiers: Complication of substance-induced condition: uncomplicated Qualified Code(s ): F10.230 - Alcohol dependence with withdrawal, uncomplicated (3) Extremity cyanosis Priority: Secondary Status: Chronic Comments: much improved overnight. Echo pending- followup outpatient. (4) Dehydration Priority: Primary Status: Acute Comments: resolving. now taking PO and ensure. (5) DVT prophylaxis Priority: Primary Status: Acute Comments: Subcutaneous Lovenox while admitted (6) COPD (chronic obstructive pulmonary disease) Priority: Secondary Status: Chronic Comments: No acute exacerbation. Patient denied shortness of breath above her norm. Qualifiers: COPD type: unspecified COPD Qualified Code(s): J44.9 - Chronic obstructive pulmonary disease, unspecified (7) HTN (hypertension) Priority: Secondary Status: Chronic Comments: Had a hypertensive reading on day of discharge but otherwise controlled, follow up outpatient Qualifiers: Hypertension type: essential hypertension Qualified Code(s): I10 - Essential (primary) hypertension (8) Protein calorie malnutrition Priority: Secondary Status: Chronic Comments: severe. nutrition was onboard- will continue Ensure TIDWM. (9) Alcohol use disorder, severe, dependence Priority: Secondary Status: Chronic (10) Opioid abuse Priority: Secondary Status: Chronic (11) Tobacco abuse Priority: Secondary Status: Chronic Comments: Declined counseling saying she is not ready to quit. (12) Hyponatremia Priority: Primary Status: Resolved (13) Major depressive disorder, recurrent severe without psychotic features Priority: Primary Status: Acute (14) Anxiety Priority: Secondary Status: Chronic - Discharge Medications Prescriptions: Chlordiazepoxide [Librium] 25 mg PO AD #18 capsule Lactose-Reduced Food [Ensure Plus] 1 bottle PO TID #90 can Home Medications: Buspirone HCl [Buspar] 15 mg PO BID #0 05/14/15 [History] Lisinopril [Zestril] 10 mg PO DAILY #0 05/14/15 [History] BuPROPion SR (12 HR) [Wellbutrin SR] 150 mg PO BID 02/16/17 [History] Gabapentin [Neurontin] 800 mg PO TID 02/16/17 [History] Ipratropium/Albuterol Neb [Duoneb] 3 ml IH Q6HR 02/16/17 [History] Omeprazole [PriLOSEC] 40 mg PO DAILY 02/16/17 [History] Paroxetine HCl [Paxil] 40 mg PO DAILY 02/16/17 [History] Propranolol HCl [Innopran Xl] 120 mg PO DAILY 02/16/17 [History] Chlordiazepoxide [Librium] 25 mg PO AD #18 capsule 02/17/17 [Rx] Gabapentin [Neurontin] 800 mg PO TID capsule 02/17/17 [Rx] Lactose-Reduced Food [Ensure Plus] 1 bottle PO TID #90 can 02/17/17 [Rx] Allergies/Adverse Reactions: Allergies No Known Allergies Allergy (Verified 05/14/15 17:17) Procedures/tests Complete & Pending: Procedures Performed prior 72 hours Category Date Time Status EV echocardiogram Routine Y 02/16/17 14:30 Ordered Date of admission: 02/15/17 20:11 Primary care physician: PCP NO Consults: 02/15/17 21:20 consult to testing and regulating chief [Consult to Nutrition] [CONS] Routine Comment: Consulting Provider: NUTRITION Reason for Dietary Consult: PO Supplementation Discharging clinician: Deepika Linares Anticipated date of discharge: 02/17/17 (sending to inpatient psych) - Patient Status Disposition: Transfer Psychiatric Hosp Condition: Fair Functional capacity at discharge: independent ambulation Overall status at discharge: patient is progressing back to baseline - Discharge Instructions Follow Up With: Renaldo Brantley DO [Resident] - Additional Instructions: Follow-up with your primary care provider on 03/07/17 at 3 PM as scheduled. Follow-up psychiatrist as needed - Diet and Activity Activity: increase activity as tolerated Diet: regular diet (with ensure TIDWM) Hospital course: Ms. Bo is a 56 year old female with past medical history of COPD, hypertension, depression, drug abuse-Suboxone, prior use of cocaine, opiates, methamphetamine, tobacco abuse, heavy alcohol abuse. Patient presented to the emergency department chief complaint her daughter stated that she had wished to harm herself and stated that she did not care if she . Patient stating that she drinks 6-8 beers per day and does not eat or drink anything else. She states that she purchases Suboxone off the street. Her daughter was concerned about her well-being and when she checked on her mom, her mom stated she wanted to harm herself. When questioned by ER staff, patient would not confirm or deny suicidal ideation. Tox screen positive for alcohol and benzos. Hyponatremia also noted. Patient was admitted to the hospitalist service for further evaluation and management. She was treated with IVF and was on the CIWA protocol. She remained stable and started to eat food while admitted and her hyponatremia resolved. Nutrition was brought onboard and the patient was started on Ensure supplementation. Patient would deny suicidal ideations, but she would also endorse hopelessness and a desire not to continue living. She would also refuse to speak about future-oriented topics so she was treated for passive suicidal ideations. Psychiatry saw the patient and the decision was made to have the patient voluntarily admitted to the inpatient psychiatric unit. Of note, on the first day of her admission, her hands, feet and nose were cyanotic likely secondary to poor PO intake and tobacco abuse. An echo was performed with the results pending at time of discharge- followup outpatient. By the second day of her admission, the cyanosis essentially resolved and her capillary refill improved. She was discharged to the inpatient psychiatric unit in stable condition and on a Librium taper. - Time Spent with Patient Total time spent providing and/or coordinating discharge services: - Constitutional Vitals: Temp Pulse Resp BP Pulse Ox 97.9 F 81 14 171/103 95 02/17/17 07:12 02/17/17 07:12 02/17/17 07:12 02/17/17 07:12 02/17/17 07:12 General appearance: Present: cachectic, A&O X 3, pleasant, no acute distress, answers questions appropriately - Head Head exam: Present: atraumatic, normocephalic - Eye Eye exam: Present: PERRL, conjuntiva pink, sclera anicteric Pupils: Present: PERRL - Neck Neck exam general surgery: Present: supple, trachea midline. Absent: lymphadenopathy - Respiratory Respiratory exam: Present: decreased breath sounds. Absent: accessory muscle use, rales, respiratory distress, rhonchi, wheezes - Cardiovascular Cardiovascular exam: Present: RRR, +S1, +S2. Absent: diastolic murmur, gallop, rubs, systolic murmur - GI/Abdominal GI/Abdominal exam: Present: normal bowel sounds, soft, no peritoneal signs. Absent: distended, tenderness - Extremities Exam Extremities exam: Present: warm, radial pulses palpable and symetrical. Absent : calf tenderness, cyanotic, pedal edema - Neurological Exam Neurological exam: Present: alert, CN II-XII intact, normal gait, oriented X3, no focal deficits, strengths equal and symetr throughout. Absent: pronater drift, facial droop, speech deficit - Skin Skin exam: Present: dry, intact, pallor, warm
--- NOTE | 2017-02-17 10:31 | Psychiatry Progress Note ---
Date of Encounter: 02/17/17 Time of Encounter: 10:15 Subjective Interval history: Patient is seen today for follow-up of her depression and suicidal ideation. Patient still feels hopeless about her future and does not know what she will do when she leaves the hospital. She was happy that her daughter and son visited yesterday. She is not sure that medications will help her with her mood. She denies active suicidal ideation but has no plans or desire to live at this point. Review of Systems Constitutional: Denies: fever, chills, weakness, weight change Eyes: Denies: eye pain, vision change Ears, Nose, Throat: Denies: ear pain, throat pain, dental pain, hearing loss, congestion Cardiovascular: Denies: chest pain, palpitations, dyspnea on exertion Respiratory: Denies: cough, dyspnea, wheezes Gastrointestinal: Reports: nausea Musculoskeletal: Denies: joint swelling, joint pain Neurological: Denies: headache, weakness, numbness, memory loss Psychiatric: Reports: depression, anxiety, abnormal sleep pattern, hopelessness , panic attacks. Denies: suicidal ideation, auditory hallucinations, visual hallucinations Objective: Exam Patient orientation: Yes Person, Yes Time, Yes Place Level of alertness: Alert Patient appearance: Appropriate Behavior: calm, cooperative Psychomotor activity: Normal Eye contact: Fleeting Contact Mood description: Depressed Affect description: congruent with mood, dysphoric Speech pattern: Normal rate, Normal rhythm, Normal tone Speech volume: Normal Thought process: Intact Thought content: Yes Suicidal ideation (passive) Perceptual disturbances: No Auditory hallucinations, No Visual hallucinations Judgment: Limited Insight: Minimal Results - Vital Signs Vital Signs: Temp Pulse Resp BP Pulse Ox 97.9 F 81 14 171/103 95 02/17/17 07:12 02/17/17 07:12 02/17/17 07:12 02/17/17 07:12 02/17/17 07:12 - Labs Labs: Laboratory Results - last 24 hr 02/16/17 02/16/17 02/16/17 11:26 17:15 23:46 Sodium Potassium Chloride Carbon Dioxide BUN Creatinine Est GFR ( Amer) Est GFR (Non-Af Amer) BUN/Creatinine Ratio Glucose POC Glucose 157 H 124 H 119 H Calculated Osmolality Calcium Magnesium Prealbumin Vitamin B12 Folate TSH 02/17/17 02/17/17 02:51 02:51 Sodium 138 Potassium 4.3 Chloride 107 Carbon Dioxide 22 BUN 14 Creatinine 0.65 Est GFR ( Amer) > 60 Est GFR (Non-Af Amer) > 60 BUN/Creatinine Ratio 22 Glucose 91 POC Glucose Calculated Osmolality 286 Calcium 8.3 L Magnesium 2.0 Prealbumin 25.0 Vitamin B12 428 Folate 11.0 TSH 0.471 Assessment and Plan (1) Major depressive disorder, recurrent severe without psychotic features Current visit: Yes Status: Acute Plan: Continue hospitalization, Close observation, Suicide Precautions per unit protocol, Encourage participation in unit milieu, Group Therapy, Monitor sleep, Monitor appetite Additional Plan: Continue with pink slip and one-to-one observation until patient is transferred to . We will make medication changes once patient is on the unit. Risks, benefits, side effects, alternatives discussed w/pt: Yes Patient agreeable to treatment: Yes (2) Anxiety Current visit: Yes Status: Chronic Additional Plan: Continue BuSpar. (3) Alcohol dependence Current visit: No Status: Chronic Plan: Continue hospitalization Additional Plan: Agree with Librium taper. This will be continued on the psychiatric unit. Qualifiers: Substance use status: uncomplicated Qualified Code(s): F10.20 - Alcohol dependence, uncomplicated (4) Opioid abuse Current visit: Yes Status: Chronic Consult Discharge Plan - Plan Referrals: NO,PCP [Primary Care Provider] -
[2017-02-17] MEDS: Nicotine 21 MG PATCH.TD24 TD SCH (11:02)
[2017-02-17] MEDS: *HR* LORazepam 2 MG/ML VIAL IVP PRN (11:03)
[2017-02-17] MEDS: Thiamine (B-1) 100 MG TABLET PO SCH (11:03)
[2017-02-17] MEDS: Gabapentin 400 MG CAPSULE PO SCH ×2 (11:03→16:06)
[2017-02-17] MEDS: Folic Acid 1 MG TABLET PO SCH (11:03)
--- NOTE | 2017-02-17 11:43 | Electrocardiograph Report ---
[address] [place] [address] Test Date: 2017-02-15 Pat Name: Marline Bo Department: 105 Room: 3B23 Gender: F C[employer] P[employer]: [facility] : 1960 Requested By: Alfred Welsh Order Number: [id number] Reading MD: Juan Diego Dow MD Measurements Intervals [place] Rate: 77 P: 69 DE: 133 QRS: 31 QRSD: 75 T: 78 QT: 387 QTc: 419 Interpretive Statements SINUS RHYTHM SEPTAL MYOCARDIAL INFARCTION, PROBABLY OLD BASELINE ARTIFACT Electronically Signed On 02-17-2017 11:41:54 EDT by Juan Diego Dow MD
[2017-02-17 15:10] VITALS: BP 115/69
== END 2017-02-17 16:07 | DRG 773 ==
LOC: EMEROO 16:03 → 3BNU 16:03
PROVIDERS: ADMIT Internal Medicine; ATTEND Nurse Practitioner Family

== ENCOUNTER 2017-02-17 16:03 | Inpatient (IN) ==
[2017-02-17] MEDS ORDERED: MOM Conc 10 ML UD.LIQ PO PRN (16:41)
[2017-02-17] MEDS ORDERED: *HR* LORazepam 1 MG TABLET PO PRN (16:41)
[2017-02-17] MEDS ORDERED: *HR* LORazepam 2 MG/ML VIAL IM PRN (16:41)
[2017-02-17] MEDS ORDERED: Mag Hydrox/Al Hydrox/Simeth 30 ML UDC PO PRN (16:41)
[2017-02-17] MEDS ORDERED: Haloperidol Lactate 5 MG/ML VIAL IM PRN (16:41)
[2017-02-17] MEDS ORDERED: traZODone 50 MG TABLET PO PRN (16:41)
[2017-02-17] MEDS: Gabapentin 400 MG CAPSULE PO SCH (20:56)
[2017-02-17] MEDS ORDERED: NON-FORMULARY MEDICATION 1 EACH EACH (Lactose-Reduced Food [Ensure Plus] 1 BOTTLE) PO SCH (21:00)
[2017-02-17] MEDS: hydrOXYzine pamoate 25 MG CAPSULE PO PRN (22:22)
[2017-02-18] MEDS: Folic Acid 1 MG TABLET PO SCH (10:08)
[2017-02-18] MEDS: Gabapentin 400 MG CAPSULE PO SCH ×3 (10:09→21:13)
[2017-02-18] MEDS: Nicotine 21 MG PATCH.TD24 TD SCH (10:10)
[2017-02-18] MEDS: Thiamine (B-1) 100 MG TABLET PO SCH (10:10)
--- NOTE | 2017-02-18 12:11 | Psychiatry History & Physical ---
Date of Encounter: 02/18/17 Time of Encounter: 11:00 History of Present Illness Patient Stated Chief Complaint: "I feel depressed." Medicare Admission Attestation: For traditional Medicare patients the provided hospital inpatient services are reasonable and necessary and in the case of services not specified as inpatient -only under 42 CFR 419.22 (n), that they are appropriately provided as inpatient services in accordance 42 CFR 412.3. For Critical Access Hospital the patient may reasonably be expected to be discharged or transferred to a hospital within 96 hours after admission to the Critical Access Hospital. Admitted From: Intrahospital Transfer History of Present Illness: Ms. Bo is a 56 year old female with a history of depression, anxiety, alcohol and opiate dependence who presents today after recently being discharged from the medical floor for alcohol withdrawal and malnourishment. Patient presented to the hospital suicidal ideations and inability to care for herself. She was brought by her daughter. Patient reported feelings of hopelessness and helplessness on arrival to the hospital and continues to endorse feelings of concern and worry about her future. Patient states that she just does not feel happy. She understands that the alcohol and drug use are probably affecting her mood. She has a previous admission couple of years ago for suicide attempt. She was thinking of killing herself and did tell her daughter she was going to kill herself prior to coming to the hospital. Patient did report a lot of stressors including recently losing her job and being evicted from her apartment. She also does not have any transportation which has precluded her follow-up appointment appointments with outpatient doctors. She has no active plan to hurt herself today but still feels hopeless about her life. She has not been eating or drinking at all on a regular basis for at least 2 weeks prior to her hospitalization. Her appetite has improved since arrival to the hospital. She denies auditory or visual hallucinations. She does report difficulty sleeping and understands that alcohol played a role in her sleep issues. She was drinking 6-8 beers a day and also using Suboxone off the street. Past Med Surg Social Fam HX - Past Medical History Medical history: COPD, hypertension, osteoporosis - Past Psychiatric History Psychiatric history: Reports: prior suicide attempt, previous psychiatric hospitalization Past psychiatric history details: Patient has one previous hospitalization and suicide attempt about 2 years ago. Has not been compliant with outpatient mental health. Was recently started on Wellbutrin by outpatient provider for smoking cessation and has been taking Lexapro and Paxil without any benefit. Family psychiatric history: No Family History of Suicide: None - Past Surgical History Surgical History: other - Social History Smoking Status: Current every day smoker Smokeless Tobacco Status: No Alcohol use: heavy, recent Drug use: opiates Occupational status: unemployed Activity Level: Independent ambulation - Family History Father History Unknown: Yes Adopted: [place]: Jeromy Alejandre Living Status: Hx Family Cardiac Disorders: Yes Hx Family Respiratory Disorders: Yes Hx Family Cancer: Yes (lung) Medications & Allergies Buspirone HCl [Buspar] 15 mg PO BID #0 05/14/15 [History] Lisinopril [Zestril] 10 mg PO DAILY #0 05/14/15 [History] Omeprazole [PriLOSEC] 40 mg PO DAILY 02/16/17 [History] Paroxetine HCl [Paxil] 40 mg PO DAILY 02/16/17 [History] Chlordiazepoxide [Librium] 25 mg PO AD #18 capsule 02/17/17 [Rx] Gabapentin [Neurontin] 800 mg PO TID capsule 02/17/17 [Rx] Ipratropium/Albuterol Neb [Duoneb] 3 ml IH Q6H PRN 02/17/17 [History] Lactose-Reduced Food [Ensure Plus] 1 bottle PO TID #90 can 02/17/17 [Rx] Propranolol HCl [Innopran Xl] 120 mg PO DAILY 02/17/17 [History] Allergies No Known Allergies Allergy (Verified 05/14/15 17:17) Review of Systems Constitutional: Denies: fever, chills, weakness, weight change Eyes: Denies: eye pain, vision change Ears, Nose, Throat: Denies: ear pain, throat pain, dental pain, hearing loss, congestion Cardiovascular: Denies: chest pain, palpitations, dyspnea on exertion Respiratory: Denies: cough, dyspnea, wheezes Gastrointestinal: Reports: nausea Genitourinary male: Denies: urgency, dysuria, frequency, genital lesions Genitourinary female: Denies: urgency, dysuria, frequency, abnormal menses, dyspareunia Musculoskeletal: Denies: joint swelling, joint pain Integumentary: Denies: rash, lesions, pruritus Neurological: Reports: headache Psychiatric: Reports: depression, anxiety, abnormal sleep pattern, suicidal ideation, change in appetite, anhedonia, difficulty concentrating, hopelessness , irritability, mood swings, panic attacks. Denies: auditory hallucinations, visual hallucinations Endocrine: Denies: fatigue, heat or cold intolerance Hematologic/Lymphatic: Denies: easy bruising, lymphadenopathy Allergic/Immunologic: Denies: urticaria, itchy eyes Mental Status Exam Patient orientation: Yes Person, Yes Time, Yes Place Level of alertness: Alert Behavior: calm, cooperative Psychomotor activity: Normal Eye contact: Maintains Eye Contact Mood description: Depressed, Anxious Affect description: congruent with mood Speech pattern: Normal rate, Normal rhythm, Normal tone Speech volume: Normal Thought process: Logical Thought content: Yes Suicidal ideation (passive) Perceptual disturbances: Yes Reacting to internal stimuli Attention span: Capable of Focused Attention Memory description: Grossly Intact Patient reliability: Reliable Historian Intelligence estimate: Average Judgment: Limited Insight: Minimal Results - Vital Signs Vital signs: Temp Pulse Resp BP 97.4 F L 94 18 170/115 02/18/17 09:00 02/18/17 09:00 02/18/17 09:00 02/18/17 09:00 Assessment and Plan (1) Major depressive disorder, recurrent severe without psychotic features Current visit: No Status: Acute Plan: Admit inpatient for safety and stabilization, Close observation, Suicide Precautions per unit protocol, Encourage participation in unit milieu, Group Therapy, Monitor sleep, Monitor appetite Additional Plan: We will taper her Paxil and Lexapro and start Zoloft. Patient's daughter has done well with Zoloft for mood. Risks, benefits, side effects, alternatives discussed w/pt: Yes Patient agreeable to treatment: Yes Plans for Post Hospital Care: Home Estimated Length of Stay (Days): 3 (2) Alcohol dependence Current visit: No Status: Chronic Plan: Admit inpatient for safety and stabilization, Close observation, Suicide Precautions per unit protocol, Encourage participation in unit milieu, Group Therapy, Monitor sleep, Monitor appetite Additional Plan: Currently on Librium taper. Reporting some anxiety symptoms but does not appear that anxious at this time. We will monitor vitals Risks, benefits, side effects, alternatives discussed w/pt: Yes Patient agreeable to treatment: Yes Estimated Length of Stay (Days): 3 Qualifiers: Substance use status: uncomplicated Qualified Code(s): F10.20 - Alcohol dependence, uncomplicated (3) Anxiety Current visit: No Status: Chronic Additional Plan: Encourage positive coping strategies. Hydroxyzine and BuSpar for anxiety. Trazodone for sleep. Risks, benefits, side effects, alternatives discussed w/pt: Yes Patient agreeable to treatment: Yes
[2017-02-18] MEDS ORDERED: *HR* LORazepam 1 MG TABLET PO ONE (15:20)
[2017-02-18] MEDS: hydrOXYzine pamoate 25 MG CAPSULE PO PRN (21:13)
[2017-02-18] MEDS: traZODone 50 MG TABLET PO PRN (21:14)
[2017-02-19] MEDS: Gabapentin 400 MG CAPSULE PO SCH ×3 (08:56→20:43)
[2017-02-19] MEDS: Thiamine (B-1) 100 MG TABLET PO SCH (08:57)
[2017-02-19] MEDS: Nicotine 21 MG PATCH.TD24 TD SCH (08:57)
[2017-02-19] MEDS: Folic Acid 1 MG TABLET PO SCH (08:57)
[2017-02-19] MEDS: hydrOXYzine pamoate 25 MG CAPSULE PO PRN (12:07)
--- NOTE | 2017-02-19 12:48 | Psychiatry Progress Note ---
Date of Encounter: 02/19/17 Time of Encounter: 10:55 Subjective Interval history: Patricia is seen today for follow-up of mood and anxiety symptoms. She continues to report some mild symptoms of alcohol withdrawal but these are improved slowly. She continues to report depression but states she is more hopeful that she will have somewhere to stay when she leaves the hospital. Initially it was thought that she may be able to stay with her sister but after calling family that has not been offered. Patient is willing to try respite and potentially alcohol rehabilitation. She denies active suicidal thoughts today. She denies side effects from the medication. Review of Systems Constitutional: Denies: fever, chills, weakness, weight change Eyes: Denies: eye pain, vision change Ears, Nose, Throat: Denies: ear pain, throat pain, dental pain, hearing loss, congestion Cardiovascular: Denies: chest pain, palpitations, dyspnea on exertion Respiratory: Denies: cough, dyspnea, wheezes Gastrointestinal: Denies: abdominal pain, nausea, vomiting, diarrhea, constipation Musculoskeletal: Denies: joint swelling, joint pain Neurological: Denies: headache, weakness, numbness, memory loss Psychiatric: Reports: depression, anxiety, abnormal sleep pattern, suicidal ideation, change in appetite, anhedonia, difficulty concentrating, hopelessness , irritability, mood swings, panic attacks. Denies: auditory hallucinations, visual hallucinations Objective: Exam Patient orientation: Yes Person, Yes Time, Yes Place Level of alertness: Alert Patient appearance: Appropriate Behavior: calm, cooperative Psychomotor activity: Normal Eye contact: Maintains Eye Contact Mood description: Depressed Affect description: congruent with mood Speech pattern: Normal rate, Normal rhythm, Normal tone Speech volume: Normal Thought process: Intact, Logical Thought content: No Suicidal ideation, No Homicidal ideation Perceptual disturbances: No Auditory hallucinations, No Visual hallucinations Judgment: Limited Insight: Minimal Results - Vital Signs Vital Signs: Temp Pulse Resp BP 97.6 F 94 16 169/114 02/19/17 08:59 02/19/17 08:59 02/19/17 08:59 02/19/17 08:59 Assessment and Plan (1) Major depressive disorder, recurrent severe without psychotic features Current visit: No Status: Acute Plan: Continue hospitalization, Close observation, Suicide Precautions per unit protocol, Encourage participation in unit milieu, Group Therapy, Monitor sleep, Monitor appetite Additional Plan: Continue Zoloft and consider decreasing Paxil again tomorrow. Encourage group attendance. . Risks, benefits, side effects, alternatives discussed w/pt: Yes Patient agreeable to treatment: Yes (2) Alcohol dependence Current visit: No Status: Chronic Plan: Continue hospitalization, Close observation, Suicide Precautions per unit protocol, Encourage participation in unit milieu, Group Therapy, Monitor sleep, Monitor appetite Additional Plan: Continue to monitor vitals. Patient's BP has been elevated. She is on propranolol. BP issues may be from underlying hypertension or related to withdrawal. Pulses within normal limits. Risks, benefits, side effects, alternatives discussed w/pt: Yes Patient agreeable to treatment: Yes Qualifiers: Substance use status: uncomplicated Qualified Code(s): F10.20 - Alcohol dependence, uncomplicated (3) Anxiety Current visit: No Status: Chronic Plan: Continue hospitalization, Close observation, Suicide Precautions per unit protocol, Encourage participation in unit milieu, Group Therapy, Monitor sleep, Monitor appetite Additional Plan: Encourage positive coping strategies. Risks, benefits, side effects, alternatives discussed w/pt: Yes Patient agreeable to treatment: Yes Consult Discharge Plan - Plan Referrals: Livier Cortes DO [Primary Care Provider] -
[2017-02-19] MEDS ORDERED: Nicotine 2 MG GUM BC PRN (12:52)
[2017-02-19] MEDS: Ibuprofen 400 MG TABLET PO PRN (20:44)
[2017-02-19] MEDS: traZODone 50 MG TABLET PO PRN (20:45)
[2017-02-20] MEDS: Thiamine (B-1) 100 MG TABLET PO SCH (08:26)
[2017-02-20] MEDS: Folic Acid 1 MG TABLET PO SCH (08:26)
[2017-02-20] MEDS: Gabapentin 400 MG CAPSULE PO SCH ×3 (08:26→20:25)
[2017-02-20] MEDS ORDERED: traZODone 50 MG TABLET PO PRN (10:24)
--- NOTE | 2017-02-20 10:27 | Psychiatry Progress Note ---
Date of Encounter: 02/20/17 Time of Encounter: 10:00 Subjective Interval history: Patricia is seen today for follow-up. She reports a significant improvement in her depression symptoms. She states that she is still anxious a lot and feels tremulous. At home she was taking a larger dose of propanolol and this was decreased by the medical floor. Her BP has been elevated and this may partially be due to withdrawal as well. Patient still feels some nausea and dizziness that she thinks may be withdrawal. She denies SI or HI. She is more hopeful for the future. She is considering outpatient rehabilitation options. She will be seen by respite today for potential placement there. Patient reports feeling overly groggy on 100 mg of trazodone and asks if we can decrease this to a lower dose. Review of Systems Psychiatric: Reports: depression, anxiety, difficulty concentrating, irritability, panic attacks. Denies: auditory hallucinations, visual hallucinations Objective: Exam Patient orientation: Yes Person, Yes Time, Yes Place Level of alertness: Alert Patient appearance: Appropriate Behavior: calm, cooperative Psychomotor activity: Normal Eye contact: Maintains Eye Contact Mood description: Anxious Affect description: congruent with mood Speech pattern: Normal rate, Normal rhythm, Normal tone Speech volume: Normal Thought process: Intact Thought content: No Suicidal ideation, No Homicidal ideation Perceptual disturbances: No Auditory hallucinations, No Visual hallucinations Judgment: Limited Insight: Partial Results - Vital Signs Vital Signs: Temp Pulse Resp BP 97.7 F 96 16 152/104 02/20/17 08:40 02/20/17 08:40 02/20/17 08:40 02/20/17 08:40 Assessment and Plan (1) Major depressive disorder, recurrent severe without psychotic features Current visit: No Status: Acute Plan: Continue hospitalization, Close observation, Suicide Precautions per unit protocol, Encourage participation in unit milieu, Group Therapy, Monitor sleep, Monitor appetite Additional Plan: Continue Zoloft and we will decrease Paxil again today. We will decrease trazodone to 75 mg by mouth daily at bedtime. Encourage group attendance. [facility] respite evaluation today. . Risks, benefits, side effects, alternatives discussed w/pt: Yes Patient agreeable to treatment: Yes (2) Alcohol dependence Current visit: No Status: Chronic Plan: Continue hospitalization, Close observation, Suicide Precautions per unit protocol, Encourage participation in unit milieu, Group Therapy, Monitor sleep, Monitor appetite Additional Plan: Continue to monitor vitals. Patient's BP has been elevated. She is on propranolol we will increase propranolol dosage today.. . Risks, benefits, side effects, alternatives discussed w/pt: Yes Patient agreeable to treatment: Yes Qualifiers: Substance use status: uncomplicated Qualified Code(s): F10.20 - Alcohol dependence, uncomplicated (3) Anxiety Current visit: No Status: Chronic Plan: Continue hospitalization, Close observation, Suicide Precautions per unit protocol, Encourage participation in unit milieu, Group Therapy, Monitor sleep, Monitor appetite Additional Plan: Encourage positive coping strategies. Risks, benefits, side effects, alternatives discussed w/pt: Yes Patient agreeable to treatment: Yes Consult Discharge Plan - Plan Referrals: Livier Cortes DO [Resident] -
[2017-02-20] MEDS: hydrOXYzine pamoate 25 MG CAPSULE PO PRN (13:20)
[2017-02-20] MEDS: Ibuprofen 400 MG TABLET PO PRN (20:26)
[2017-02-21] MEDS: Folic Acid 1 MG TABLET PO SCH (09:12)
[2017-02-21] MEDS: Gabapentin 400 MG CAPSULE PO SCH (09:12)
[2017-02-21] MEDS: Thiamine (B-1) 100 MG TABLET PO SCH (09:12)
[2017-02-21 09:30] VITALS: BP 162/97
--- NOTE | 2017-02-21 10:34 | Discharge Summary ---
Date of Encounter: 02/21/17 Time of Encounter: 10:00 Diagnosis - Discharge Diagnosis (1) Major depressive disorder, recurrent severe without psychotic features Priority: Primary Status: Acute (2) Alcohol dependence Priority: Secondary Status: Chronic Qualifiers: Substance use status: uncomplicated Qualified Code(s): F10.20 - Alcohol dependence, uncomplicated (3) Anxiety Priority: Secondary Status: Chronic Medications - Discharge Medications Prescriptions: Buspirone HCl [Buspar] 15 mg PO BID #90 tablet Chlordiazepoxide [Librium] 25 mg PO DAILY #7 capsule Folic Acid 1 mg PO DAILY #30 tablet Gabapentin [Neurontin] 800 mg PO TID #90 capsule Lactose-Reduced Food [Ensure Plus] 1 bottle PO TID #90 can Lisinopril [Zestril] 10 mg PO DAILY #30 tablet Omeprazole [PriLOSEC] 40 mg PO DAILY #30 capsule. Paroxetine [Paxil] 10 mg PO DAILY #14 tablet Propranolol [Inderal] 20 mg PO BID #60 tablet Sertraline [Zoloft] 50 mg PO DAILY #30 tablet Thiamine (B-1) [Vitamin B-1] 100 mg PO DAILY #30 tablet traZODone [TraZODone] 75 mg PO HS PRN #45 tablet PRN Reason: Insomnia Ipratropium/Albuterol Neb [Duoneb] 3 ml IH Q6H PRN 02/17/17 [History] Buspirone HCl [Buspar] 15 mg PO BID #90 tablet 02/21/17 [Rx] Chlordiazepoxide [Librium] 25 mg PO DAILY #7 capsule 02/21/17 [Rx] Folic Acid 1 mg PO DAILY #30 tablet 02/21/17 [Rx] Gabapentin [Neurontin] 800 mg PO TID #90 capsule 02/21/17 [Rx] Lactose-Reduced Food [Ensure Plus] 1 bottle PO TID #90 can 02/21/17 [Rx] Lisinopril [Zestril] 10 mg PO DAILY #30 tablet 02/21/17 [Rx] Omeprazole [PriLOSEC] 40 mg PO DAILY #30 capsule. 02/21/17 [Rx] Paroxetine [Paxil] 10 mg PO DAILY #14 tablet 02/21/17 [Rx] Propranolol [Inderal] 20 mg PO BID #60 tablet 07/07/17 [Rx] Sertraline [Zoloft] 50 mg PO DAILY #30 tablet 02/21/17 [Rx] Thiamine (B-1) [Vitamin B-1] 100 mg PO DAILY #30 tablet 02/21/17 [Rx] traZODone [TraZODone] 75 mg PO HS PRN #45 tablet 02/21/17 [Rx] Allergies No Known Allergies Allergy (Verified 05/14/15 17:17) Provider Date of admission: 02/17/17 16:03 Primary care physician: PCP NO Discharging clinician: Elva Lamas Assessment and Plan - Patient/Caregiver Discharge Instructions Activity: resume usual activities as tolerated Diet: regular diet - Follow up Plan Follow up with: Livier Cortes DO [Resident] - Functional capacity at discharge: independent ambulation Overall status at discharge: Stable Disposition: Transfer Other Hospital Course Hospital course: Ms. Bo is a 56 year old female with a history of depression, anxiety, alcohol dependence. She was admitted to the hospital with alcohol withdrawal and suicidal ideation. Patient was medically cleared and transferred to for psychiatric stabilization. She was incorporated into the therapeutic milieu and offer group and individual as well as recreational therapy. She was placed on suicide precautions and close observation per unit protocol. Patient was started on Zoloft and Lexapro and Paxil were tapered as she did not think these medications were helpful to her. Patient tolerated Zoloft well and denied side effects. She was started on trazodone titrated to 75 mg by mouth daily at bedtime for sleep. Patient's blood pressure was elevated during the hospital stay and she was on propranolol this was increased to 20 mg twice a day with some improvement. Patient is aware she will need to follow-up with PCP regarding her blood pressure medications. Throughout the course of the hospital stay the patient's mood improved. She attended group and unit activities at the time of discharge denied suicidal or homicidal ideation, intent, or plan. Patient was evaluated by [facility] into the respite. Patient is interested in following up with her outpatient treatment for substance abuse. She will continue her Librium taper for 5 days and then prescription for Librium has been provided for her. She is discharged in stable condition. - Time Spent with Patient Total time spent providing and/or coordinating discharge services: Less than 30 minutes Quality - Multiple Antipsychotics Patient discharged on 2 or more antipsychotic medications: No Procedures - Procedures Procedures: Medication Management, Crisis Stabilization, Supportive Therapy, Group Therapy, Psychoeducational Therapy Mental Status Exam - Mental Status Exam Patient orientation: Yes Person, Yes Time, Yes Place Level of alertness: Alert Patient appearance: Appropriate, Well Groomed Behavior: calm, cooperative Psychomotor activity: Normal Eye contact: Maintains Eye Contact Mood description: Euthymic/stable Affect description: congruent with mood, full range Speech pattern: Normal rate, Normal rhythm, Normal tone Speech Volume: Normal Thought process: Linear, Goal Oriented Thought Content: No Suicidal ideation, No Homicidal ideation, No Overt delusions Perceptual Disturbances: No Auditory hallucinations, No Visual hallucinations Judgment: Limited Insight: Partial
== END 2017-02-21 12:45 | disposition other institution (70) | DRG 751 ==
LOC: 1ANU 16:03
PROVIDERS: ADMIT Student in an Organized Health Care Education/Training Program; ATTEND Student in an Organized Health Care Education/Training Program

== ENCOUNTER 2017-11-20 15:44 | Observation (INO) ==
[2017-11-20] MEDS ORDERED: Aspirin 81 MG TAB.CHEW PO ONE (16:08)
--- NOTE | 2017-11-20 16:08 | Emergency Department Note ---
Disposition Clinical Impression: History of alcohol abuse Chest pain Qualifiers: Chest pain type: unspecified Qualified Code(s): R07.9 - Chest pain, unspecified Dyspnea Qualifiers: Dyspnea type: unspecified Qualified Code(s): R06.00 - Dyspnea, unspecified Alcohol withdrawal Qualifiers: Complication of substance-induced condition: uncomplicated Qualified Code(s): F10.230 - Alcohol dependence with withdrawal, uncomplicated Disposition: Admitted As Inpatient Condition: Good Referrals: Eyad Boo DO [Primary Care Provider] - Forms: ED Satisfaction Letter Time of Disposition: 16:48 SOB HPI - General Chief Complaint: ED Shortness of Breath/Dyspnea Stated Complaint: CP/SOB Time Seen by Provider: 11/20/17 15:54 Source: patient Limitations: no limitations Nursing Notes Reviewed: Yes Vital Signs Reviewed: Yes - History of Present Illness Patient is a 57-year-old female with past medical history of alcohol abuse, drinks around 4-5 tallboy's a day, also has COPD and hypertension. Current smoker. She presents today due to chest pain, shortness of breath, sweating. She states that shortness breath started earlier this morning and is worse with exertion and she developed chest pain later this afternoon. Chest pain is described as a sharp pressure in the center of her chest that radiates to her left shoulder. No radiation to back. No unilateral leg swelling or redness. No previous heart attack or stent. She also notes that she feels anxious and has been shaking. Her last drink of alcohol was about 24 hours ago. She states that the longest she ever goes without a drink before going into withdrawal is around 24 hours. Denies any current hallucinations. Denies any other abdominal pain, vomiting, fevers. - Related Data Home Medications Medication Instructions Recorded Confirmed Ipratropium/Albuterol Neb [Duoneb] 3 ml IH Q6H PRN 02/17/17 02/17/17 Previous Rx's Medication Instructions Recorded Buspirone HCl [Buspar] 15 mg PO BID #90 tablet 02/21/17 Chlordiazepoxide [Librium] 25 mg PO DAILY #7 capsule 02/21/17 Folic Acid 1 mg PO DAILY #30 tablet 02/21/17 Gabapentin [Neurontin] 800 mg PO TID #90 capsule 02/21/17 Lactose-Reduced Food [Ensure Plus] 1 bottle PO TID #90 can 02/21/17 Lisinopril [Zestril] 10 mg PO DAILY #30 tablet 02/21/17 Omeprazole [PriLOSEC] 40 mg PO DAILY #30 capsule. 02/21/17 Paroxetine [Paxil] 10 mg PO DAILY #14 tablet 02/21/17 Propranolol [Inderal] 20 mg PO BID #60 tablet 02/21/17 Sertraline [Zoloft] 50 mg PO DAILY #30 tablet 02/21/17 Thiamine (B-1) [Vitamin B-1] 100 mg PO DAILY #30 tablet 02/21/17 traZODone [TraZODone] 75 mg PO HS PRN #45 tablet 02/21/17 Allergies Allergy/AdvReac Type Severity Reaction Status Date / Time No Known Allergies Allergy Verified 11/20/17 15:54 All systems ED: reviewed and negative except as stated. Constitutional: Denies: fever Cardiovascular: Reports: chest pain, dyspnea on exertion. Denies: palpitations Respiratory: Reports: dyspnea. Denies: cough, wheezes Gastrointestinal: Denies: abdominal pain, nausea, vomiting, diarrhea Integumentary: Denies: rash Neurological: Denies: headache, weakness, numbness, paresthesias Past Medical History - Past Medical History Attestation: Yes The following information was validated with the patient. Source: patient Medical history: Reports: COPD, hypertension, osteoporosis Surgical history: Reports: hip replacement, other Psychiatric history: Reports: anxiety, depression, previous psychiatric hospitalization [employer] history: Reports: non-contributory - Social History Smoking Status: Current every day smoker Smokeless Tobacco Status: No Alcohol use: Reports: heavy, recent Drug use: Reports: cocaine, opiates, methamphetamine, prescription drug abuse Physical Exam - General Limitations: no limitations General appearance: alert, in no apparent distress, anxious, other (crying) - Head Head exam: atraumatic, normocephalic, normal inspection - Eye Eye exam: Present: normal appearance, PERRL, EOMI - ENT ENT exam: normal exam, normal oropharynx, mucous membranes moist - Neck Neck exam: Present: normal inspection, full ROM, trachea midline - Chest Chest inspection: Present: normal inspection, symmetric chest wall rise - Respiratory Respiratory exam: Present: normal lung sounds bilaterally - Cardiovascular Cardiovascular exam: Present: regular rate, normal rhythm, normal heart sounds - Abdominal Exam Abdominal exam: Present: soft, Non-Tender. Absent: tenderness, distention, guarding, rebound, rigidity - Extremities Exam Extremities exam: Present: normal inspection, full ROM. Absent: tenderness, pedal edema - Neurological Exam Neurological exam: Present: alert, oriented X3 - Psychiatric Psychiatric exam: Present: normal affect, normal mood - Skin Skin exam: Present: warm, dry, intact, normal color Course Vital Signs Temperature 97.5 F L 11/20/17 15:45 Pulse Rate 81 11/20/17 15:45 Respiratory Rate 18 11/20/17 15:45 Blood Pressure 168/100 11/20/17 15:45 O2 Sat by Pulse Oximetry 100 11/20/17 15:45 Temperature 97.5 F L 11/20/17 15:45 Pulse Rate 73 11/20/17 16:10 Respiratory Rate 20 11/20/17 16:05 Blood Pressure 152/96 11/20/17 16:10 O2 Sat by Pulse Oximetry 98 11/20/17 16:10 Oxygen Delivery Oxygen Delivery Room Air Shortness of Breath/Dyspnea - [facility] Narrative Medical decision making narrative: Chest x-ray negative for any acute cardio pulmonary process. EKG shows no acute ST changes. Troponin negative. Patient's chest pain is still concerning for ACS with worsening with exertion, associated with shortness of breath and sweating and mild nausea. There may be a component of anxiety but ACS cannot be ruled out at this time. There is also concerned that patient is going into withdrawal from alcohol. Patient was given Ativan 1 mg to help with withdrawal symptoms. We will also give the patient a banana bag. Patient will need to be admitted for ACS workup along with alcohol withdrawal. She is agreeable with this plan. Chest X-Ray 11/20/17 16:08 IMPRESSION: 1. No active pulmonary disease. 2. COPD. D/ / Uziel Grey MD / Uziel Grey MD Interpreting Provider: Uziel Grey MD - Medical Records Medical records reviewed: Yes I reviewed the patient's medical records. - Lab Data Lab results reviewed: Yes I reviewed the patient's lab results. Result diagrams: 11/20/17 16:05 11/20/17 16:05 Lab Results 11/20/17 11/20/17 Range/Units 16:05 16:05 WBC 9.2 (4.3-11.1) K/mcL RBC 4.66 (3.82-4.97) M/mcL Hgb 13.6 (11.5-15.4) g/dL Hct 42.6 (35.3-44.9) % MCV 91.4 (83.0-100.0) fL MCH 29.2 (28.0-33.3) pg MCHC 31.9 (31.6-35.5) g/dL RDW 15.2 H (11.5-14.5) % Plt Count 391 (140-400) K/mcL MPV 9.5 (9.4-12.4) fL Immature Gran % 0.3 (0-4) % Seg Neutrophils % 59.6 % Lymphocytes % 26.3 % Monocytes % 8.3 % Eosinophils % 4.1 % Basophils % 1.4 % Neutrophils # 5.5 (1.6-8.9) K/mcL Lymphocytes # 2.4 (0.6-4.6) K/mcL Monocytes # 0.8 (0.0-1.3) K/mcL Eosinophils # 0.4 (0.0-0.6) K/mcL Basophils # 0.1 (0.0-0.2) K/mcL Sodium 138 (136-145) mEq/L Potassium 4.0 (3.5-5.1) mEq/L Chloride 105 (98-107) mEq/L Carbon Dioxide 25 (23-29) mEq/L BUN 16 (6-20) mg/dL Creatinine 0.63 (0.60-1.20) mg/dL Est GFR ( Amer) > 60 (> 60) Est GFR (Non-Af Amer) > 60 (> 60) BUN/Creatinine Ratio 25 (6-26) Glucose 88 (70-105) mg/dL Calculated Osmolality 287 (280-300) Calcium 9.4 (8.6-10.3) mg/dL Troponin I < 0.03 (< 0.04) ng/mL - Radiology Data Radiology results reviewed: Yes I reviewed the patient's radiology results. - EKG Data EKG attestation: Yes I reviewed and interpreted this EKG. EKG results narrative: 11/20/2017 at 16:02. Normal sinus rhythm. Rate 70. MN 127. QRS 80. QTC 406. Mild left axis deviation. No acute ST elevation or depression. Katheryn - Katheryn Situation: Demographics, MOA Background: Presenting Complaint, Relevant PMH, Meds, & Allergies Assessment: Vital Signs, Course and respsone to treatment, Exam Concerns, Patient/Family Expectation, Pertinant Lab Results Recommendation: Barrier(s) to disposition, Recommendation based on pending studies, treatments, or consults S.Mickie Report Given to: Dr. Abimael Campa Repor Time: 17:14
[2017-11-20] MEDS ORDERED: *HR* LORazepam 2 MG/ML VIAL IVP ONE (16:09)
[2017-11-20] MEDS ORDERED: Aspirin 81 MG TAB.CHEW ONE (16:16)
[2017-11-20 16:19] LABS: Basophils # 0.1 K/mcL (0.0-0.2); Basophils % 1.4 %; Eosinophils # 0.4 K/mcL (0.0-0.6); Eosinophils % 4.1 %; Hematocrit 42.6 % (35.3-44.9); Hemoglobin 13.6 g/dL (11.5-15.4); Immature Granulocytes % 0.3 % (0-4); Lymphocytes # 2.4 K/mcL (0.6-4.6); Lymphocytes % 26.3 %; Mean Corpuscular HGB Conc 31.9 g/dL (31.6-35.5); Mean Corpuscular Hemoglobin 29.2 pg (28.0-33.3); Mean Corpuscular Volume 91.4 fL (83.0-100.0); Mean Platelet Volume 9.5 fL (9.4-12.4); Monocytes # 0.8 K/mcL (0.0-1.3); Monocytes % 8.3 %; Neutrophils # 5.5 K/mcL (1.6-8.9); Platelet Count 391 K/mcL (140-400); Red Blood Count 4.66 M/mcL (3.82-4.97); Red Cell Distribution Width 15.2 % (11.5-14.5); Segmented Neutrophils % 59.6 %
[2017-11-20 16:44] LABS: Troponin I < 0.03 ng/mL (< 0.04)
[2017-11-20 16:45] LABS: BUN/Creatinine Ratio 25 (6-26); Blood Urea Nitrogen 16 mg/dL (6-20); Calcium 9.4 mg/dL (8.6-10.3); Carbon Dioxide 25 mEq/L (23-29); Chloride 105 mEq/L (98-107); Glucose 88 mg/dL (70-105); Osmolality,Calculated 287 (280-300); Sodium 138 mEq/L (136-145); eGFR For African Americans > 60 (> 60); eGFR For Non-African Americans > 60 (> 60)
--- NOTE | 2017-11-20 16:52 | Emergency Department Note ---
Disposition Clinical Impression: History of alcohol abuse Chest pain Qualifiers: Chest pain type: unspecified Qualified Code(s): R07.9 - Chest pain, unspecified Dyspnea Qualifiers: Dyspnea type: unspecified Qualified Code(s): R06.00 - Dyspnea, unspecified Alcohol withdrawal Qualifiers: Complication of substance-induced condition: uncomplicated Qualified Code(s): F10.230 - Alcohol dependence with withdrawal, uncomplicated Disposition: Admitted As Inpatient Condition: Good Referrals: Eyad Boo DO [Primary Care Provider] - Forms: ED Satisfaction Letter General Adult HPI - General Chief complaint: ED Shortness of Breath/Dyspnea Stated complaint: CP/SOB Time Seen by Provider: 11/20/17 15:54 Source: patient Limitations: no limitations - History of Present Illness Pain Scale: 8 - Related Data Home Medications Medication Instructions Recorded Confirmed Ipratropium/Albuterol Neb [Duoneb] 3 ml IH Q6H PRN 02/17/17 02/17/17 Previous Rx's Medication Instructions Recorded Buspirone HCl [Buspar] 15 mg PO BID #90 tablet 02/21/17 Chlordiazepoxide [Librium] 25 mg PO DAILY #7 capsule 02/21/17 Folic Acid 1 mg PO DAILY #30 tablet 02/21/17 Gabapentin [Neurontin] 800 mg PO TID #90 capsule 02/21/17 Lactose-Reduced Food [Ensure Plus] 1 bottle PO TID #90 can 02/21/17 Lisinopril [Zestril] 10 mg PO DAILY #30 tablet 02/21/17 Omeprazole [PriLOSEC] 40 mg PO DAILY #30 capsule. 02/21/17 Paroxetine [Paxil] 10 mg PO DAILY #14 tablet 02/21/17 Propranolol [Inderal] 20 mg PO BID #60 tablet 02/21/17 Sertraline [Zoloft] 50 mg PO DAILY #30 tablet 02/21/17 Thiamine (B-1) [Vitamin B-1] 100 mg PO DAILY #30 tablet 02/21/17 traZODone [TraZODone] 75 mg PO HS PRN #45 tablet 02/21/17 Allergies Allergy/AdvReac Type Severity Reaction Status Date / Time No Known Allergies Allergy Verified 11/20/17 15:54 Past Medical History - Past Medical History Medical history: Reports: COPD, hypertension, osteoporosis Surgical history: Reports: hip replacement, other Psychiatric history: Reports: anxiety, depression, previous psychiatric hospitalization [employer] history: Reports: non-contributory - Social History Smoking Status: Current every day smoker Smokeless Tobacco Status: No Alcohol use: Reports: heavy, recent Drug use: Reports: cocaine, opiates, methamphetamine, prescription drug abuse Physical Exam - General Limitations: no limitations General appearance: alert, in no apparent distress, anxious Course Vital Signs Temperature 97.5 F L 11/20/17 15:45 Pulse Rate 81 11/20/17 15:45 Respiratory Rate 18 11/20/17 15:45 Blood Pressure 168/100 11/20/17 15:45 O2 Sat by Pulse Oximetry 100 11/20/17 15:45 Temperature 97.5 F L 11/20/17 15:45 Pulse Rate 73 11/20/17 16:10 Respiratory Rate 20 11/20/17 16:05 Blood Pressure 152/96 11/20/17 16:10 O2 Sat by Pulse Oximetry 98 11/20/17 16:10 Oxygen Delivery Oxygen Delivery Room Air Medical Decision Making - Lab Data Result diagrams: 11/20/17 16:05 11/20/17 16:05 Lab Results 11/20/17 11/20/17 Range/Units 16:05 16:05 WBC 9.2 (4.3-11.1) K/mcL RBC 4.66 (3.82-4.97) M/mcL Hgb 13.6 (11.5-15.4) g/dL Hct 42.6 (35.3-44.9) % MCV 91.4 (83.0-100.0) fL MCH 29.2 (28.0-33.3) pg MCHC 31.9 (31.6-35.5) g/dL RDW 15.2 H (11.5-14.5) % Plt Count 391 (140-400) K/mcL MPV 9.5 (9.4-12.4) fL Immature Gran % 0.3 (0-4) % Seg Neutrophils % 59.6 % Lymphocytes % 26.3 % Monocytes % 8.3 % Eosinophils % 4.1 % Basophils % 1.4 % Neutrophils # 5.5 (1.6-8.9) K/mcL Lymphocytes # 2.4 (0.6-4.6) K/mcL Monocytes # 0.8 (0.0-1.3) K/mcL Eosinophils # 0.4 (0.0-0.6) K/mcL Basophils # 0.1 (0.0-0.2) K/mcL Sodium 138 (136-145) mEq/L Potassium 4.0 (3.5-5.1) mEq/L Chloride 105 (98-107) mEq/L Carbon Dioxide 25 (23-29) mEq/L BUN 16 (6-20) mg/dL Creatinine 0.63 (0.60-1.20) mg/dL Est GFR ( Amer) > 60 (> 60) Est GFR (Non-Af Amer) > 60 (> 60) BUN/Creatinine Ratio 25 (6-26) Glucose 88 (70-105) mg/dL Calculated Osmolality 287 (280-300) Calcium 9.4 (8.6-10.3) mg/dL Troponin I < 0.03 (< 0.04) ng/mL Attestation Statement - Attestation Attestation: I examined this patient and my medical decision-making was reviewed with the [employer]/PA/Advanced Practice Nurse/Resident Physician. I agree with the documented findings, disposition and treatment plan as described except to the extent set forth below. Patient presents with chest pain with associated diaphoresis and dyspnea and the chest pain is exertional and the patient does have a history of significant alcohol use. She denies any pleuritic aspect of her chest pain. No radiation to the back but does radiate to the left shoulder. Her symptoms are concerning for acute coronary syndrome and the patient did have a EKG which I reviewed showing normal sinus rhythm with nonspecific ST changes and I did review her labs with negative troponin the patient's symptoms are concerning and she will be admitted to the hospital. One other concern is DTs as she has not drank in approximately 24 hours so she is at significant risk of DTs. [id number]
[2017-11-20] MEDS ORDERED: Naloxone 0.4 MG/ML INJ IVP PRN (17:41)
[2017-11-20] MEDS ORDERED: *HR* LORazepam 2 MG/ML VIAL IVP PRN ×3 (17:41)
[2017-11-20] MEDS ORDERED: Thiamine (B-1) 100 MG, Folic Acid 1 MG, MVI, adult with vitamin K 10 ML in 0.9 % Sodi... IVPB SCH (18:00)
[2017-11-20] MEDS: *HR* Heparin 5,000 UNIT/ML VIAL SQ SCH (19:00)
[2017-11-20] MEDS: Vitamin B Complex/Vit C/Vit E 1 EACH TABLET PO SCH (19:01)
[2017-11-20] MEDS: Folic Acid 1 MG TABLET PO SCH (19:01)
[2017-11-20] MEDS: Thiamine (B-1) 100 MG TABLET PO SCH (19:01)
[2017-11-20] MEDS ORDERED: traZODone 50 MG TABLET PO PRN (19:29)
--- NOTE | 2017-11-20 19:30 | Internal Med History&Physical ---
<Erik Wright J - Last Filed: 11/20/17 21:30> Date of Encounter: 11/20/17 Time of Encounter: 19:29 Internal Medicine - H&P: HPI Chief complaint: CHEST PAIN, SUSPECTED ETOH withdrawal Admitted From: Home Plans for Post Hospital Care: Home History of present illness: Ms. Bo is a 57 year old female with past medical history of COPD, HTN and alcohol abuse, she reports that she drinks around 4-5 tallboy's a day. She presents to [facility] ED today with sharp pressure/pain in the center of her chest that radiates to the left shoulder. She also has c/o shortness of breath, sweating. She reports that the shortness breath began this morning and the chest pain began this afternoon after her court appearance. She also notes that she has been anxious as she was just placed under house arrest. No previous FL or stents. She also notes that she feels anxious and has been shaking and admits that the may be having withdrawal. Her last drink of alcohol was approximately 24 hours ago. She states that the longest she ever goes without a drink before going into withdrawal is around 24 hours. She Denies any current hallucinations, or SI/HI. No additional complaints at this time. Past Med Surg Social Fam HX - Past Medical History Medical history: COPD, hypertension, osteoporosis Psychiatric history: anxiety, depression, previous psychiatric hospitalization - Past Surgical History Surgical History: other - Social History Smoking Status: Current every day smoker Packs per day: 0.5 Smokeless Tobacco Status: No Alcohol use: heavy, recent Drug use: cocaine, opiates, methamphetamine, prescription drug abuse - Family History Father Adopted: No Living Status: Hx Family Cardiac Disorders: Yes Hx Family Respiratory Disorders: Yes Hx Family Cancer: Yes (lung) Internal Medicine - H&P: Meds Folic Acid 1 mg PO DAILY #30 tablet 02/21/17 [Rx] Lisinopril [Zestril] 10 mg PO DAILY #30 tablet 02/21/17 [Rx] Omeprazole [PriLOSEC] 40 mg PO DAILY #30 capsule. 02/21/17 [Rx] Buspirone HCl [Buspar] 15 mg PO BID 11/20/17 [History] Gabapentin [Neurontin] 600 mg PO QID 11/20/17 [History] Paroxetine HCl [Paxil] 40 mg PO DAILY 11/21/17 [History] Propranolol HCl [Inderal LA] 120 mg PO DAILY 11/21/17 [History] Simvastatin [Zocor] 40 mg PO HS #60 tablet 11/21/17 [Rx] Thiamine (B-1) [Vitamin B-1] 100 mg PO DAILY #60 tablet 11/21/17 [Rx] 3 Allergy/AdvReac Type Severity Reaction Status Date / Time No Known Allergies Allergy Verified 11/20/17 15:54 All Systems PM: A 10-system review of systems was performed and is negative for pertinent findings except as documented above in the HPI. - Constitutional Constitutional: no chills, no fever(s) - Cardiovascular Cardiovascular ROS IM: as per HPI, chest pain, no diaphoresis, no dyspnea on exertion, no edema - Respiratory Respiratory: no cough, no dyspnea, no wheezing, no excessive phlegm production - Gastrointestinal Gastrointestinal: abdominal pain, nausea, no diarrhea, no hematemesis, no hematochezia, no melena, no vomiting - Genitourinary Genitourinary: no change in urinary stream, no dysuria, no flank pain, no hematuria - Musculoskeletal Musculoskeletal ROS IM: no numbness, no tingling - Psychiatric Psychiatric: anxiety - Constitutional Vitals: Temp Pulse Resp BP Pulse Ox 98.5 F 69 16 164/92 97 11/20/17 19:09 11/20/17 19:09 11/20/17 19:09 11/20/17 19:09 11/20/17 19:09 General appearance: Present: cooperative, A&O X 3, no acute distress, answers questions appropriately - Head Head exam: Present: atraumatic, normocephalic - Eye Eye exam: Present: PERRL, conjuntiva pink, sclera anicteric Pupils: Present: PERRL - Neck Neck exam general surgery: Present: supple, trachea midline. Absent: lymphadenopathy - Respiratory Respiratory exam: Present: CTAB. Absent: accessory muscle use, rales, rhonchi, wheezes - Cardiovascular Cardiovascular exam: Present: RRR, +S1, +S2. Absent: diastolic murmur, gallop, rubs, systolic murmur - Extremities Exam Extremities exam: Present: warm, radial pulses palpable and symmetrical. Absent : calf tenderness, cyanotic, pedal edema - Neurological Exam Neurological exam: Present: alert, oriented X3, strengths equal and symetr throughout. Absent: facial droop, speech deficit Additional comments: Intermittent tremulousness - Psychiatric Psychiatric exam: Present: anxious - Skin Skin exam: Present: dry, intact Internal Med - H&P Results - Labs CBC & Chem 7: 11/20/17 16:05 11/20/17 16:05 - EKG Data -: EKG Interpreted by Myself EKG shows normal: sinus rhythm Rate: normal - EKG Data Interpretation IM: normal EKG - Impressions 1. No active pulmonary disease. 2. COPD. - Assessment and plan (1) Chest pain Status: Acute Assessment and plan: ASSESSMENT: - Presents today with shortness of breath, and sharp retrosternal chest pain which began this afternoon after her court appointment for house arrest. She reports a h/o anxiety and admits that the house arrest is making her more anxious. She has no prior h/o FL. There was no exertional component and she denies any diaphoresis. Additionally, she appears to be in ETOH withdrawal. Initial troponin negative at 0.03 and CXR shows no acute pulmonary process. However give her hx we will admit for observation to r/o ACS PLAN: - cardiac enzymes x 2 q hr - EKG now and in AM - ASA - O2 by NC to keep SpO2 greater than 92% - CBCD, BMP in AM - Fasting lipids - Heparin 5000 U SQ BID - 2D Echo Qualifiers: Chest pain type: unspecified Qualified Code(s): R07.9 - Chest pain, unspecified (2) Alcohol withdrawal Status: Acute Assessment and plan: History of alcohol abuse. Reports drinking 4-5 large cans of alcohol every day. She reports that her last drink was a little over 24 hours ago. She states that she has experienced withdrawal before and that her current symptoms are similar to her withdrawal presentation. Start CIWA protocol. Denies SI/HI , no need for sitter at this time Qualifiers: Complication of substance-induced condition: uncomplicated Qualified Code(s ): F10.230 - Alcohol dependence with withdrawal, uncomplicated (3) Abdominal pain Status: Acute Assessment and plan: Abdominal pain likely caused by alcohol induced gastritis. Patient is a heavy drinker. She is reporting nausea but no vomiting. Continue antiemetics. She states pain is tolerable at this time. Consider adding pain medication if pain should worsen Qualifiers: Abdominal location: unspecified location Qualified Code(s): R10.9 - Unspecified abdominal pain (4) Anxiety and depression Status: Acute Assessment and plan: History of anxiety. Patient appears to be anxious per my assessment. Anxiety exacerbated by alcohol withdrawal. Continue Buspar and Start CIWA protocol (5) COPD (chronic obstructive pulmonary disease) Status: Chronic Assessment and plan: Stable, resume bronchodilators Qualifiers: COPD type: unspecified COPD Qualified Code(s): J44.9 - Chronic obstructive pulmonary disease, unspecified (6) HTN (hypertension) Status: Chronic Assessment and plan: History of hypertension. Resume home antihypertensive medication Qualifiers: Hypertension type: essential hypertension Qualified Code(s): I10 - Essential (primary) hypertension (7) DVT prophylaxis Status: Acute Assessment and plan: Heparin 5000 units SC BID - Time Spent With Patient Total time spent is greater than 50% in coordination of care (as documented) at patient's floor/unit and/or counseling patient: 25 - 35 minutes <Pancho Varghese - Last Filed: 11/21/17 21:38> Date of Encounter: 11/21/17 Internal Medicine - H&P: HPI History of present illness: Ms. Bo is a 57 year old female Past Med Surg Social Fam HX - Family History Father Adopted: No Living Status: Hx Family Cardiac Disorders: Yes Hx Family Respiratory Disorders: Yes Hx Family Cancer: Yes (lung) Mother Living Status: Still Living Hx Family Psychosocial Disorders: Yes All Systems PM: A 10-system review of systems was performed and is negative for pertinent findings except as documented above in the HPI. - Constitutional Vitals: Temp Pulse Resp BP Pulse Ox 98.0 F 68 18 159/100 90 11/21/17 15:40 11/21/17 15:40 11/21/17 15:40 11/21/17 15:40 11/21/17 15:40 Internal Med - H&P Results - Labs CBC & Chem 7: 11/21/17 04:29 11/21/17 04:29 Labs: Short CBC 11/21/17 Range/Units 04:29 WBC 5.7 (4.3-11.1) K/mcL Hgb 12.1 D (11.5-15.4) g/dL Hct 37.3 (35.3-44.9) % Plt Count 262 (140-400) K/mcL BMP 11/21/17 04:29 Sodium 139 Potassium 3.8 Chloride 108 H Carbon Dioxide 24 BUN 13 Creatinine 0.64 Glucose 92 Calcium 8.6 Cardiac Enzymes 11/20/17 11/21/17 Range/Units 22:39 04:29 Troponin I < 0.03 < 0.03 (< 0.04) ng/mL - Impressions ITS Impressions Echocardiogram 11/21/17 20:01 Impressions: LVEF 60-65%. Asymmetric basal septal hypertrophy. Diastolic dysfunction with elevated filling pressures. Normal right ventricular structure and function. Moderate-severely dilated left atrium. Mild prolapsing of the posterior mitral valve leaflet associated with mild to moderate mitral regurgitation. Mild-moderate tricuspid regurgitation. Mild pulmonary hypertension. Left Ventricular Wall Motion: Rest Echo Findings All wall segments showed normal motion. Findings: Study Quality * Technically adequate exam. ECG Findings * Normal sinus rhythm. Left Ventricle * LVEF 60-65%. * Asymmetric basal septal hypertrophy. * Diastolic dysfunction with elevated filling pressures. Right Ventricle * Normal right ventricular structure and function. Left Atrium * Moderate-severely dilated left atrium. Right Atrium * Mildly dilated right atrium. Mitral Valve * No mitral stenosis. * Mild-moderate mitral regurgitation. * Mild prolapsing of the posterior mitral valve leaflet. Aortic Valve * No aortic regurgitation. * Trileaflet aortic valve. * No aortic stenosis. Tricuspid Valve * Tricuspid valve not well visualized. * Mild-moderate tricuspid regurgitation. * Estimated RA pressure is 8 mmHg. * Estimated RVSP is 38 mmHg. * Mild pulmonary hypertension. Pulmonic Valve * Pulmonic valve is not well visualized. * No pulmonic stenosis. * No pulmonic regurgitation. Pulmonary Artery * Pulmonary artery not well visualized. Aorta * Normally sized aortic root. Pericardium * There is no pericardial effusion present. Interatrial Septum * No evidence of PFO by color Doppler. IVC * The IVC is not dilated. * < 50% respiratory change. - Attending Attestation The patient was independently examined and I have reviewed her available records , labs and tests. I agree with the full stack net developer A&P. Her CP has resolved and her troponins re negative so far with no ischemic changes noted on her ECG. Her Lungs are clear to auscultaton and her HR is normal with a normal rhythm. She denies a history of DTs or withdrawal seizures. - Assessment and plan (1) Abdominal pain Status: Resolved Qualifiers: Abdominal location: unspecified location Qualified Code(s): R10.9 - Unspecified abdominal pain (2) Alcohol withdrawal Status: Acute Qualifiers: Complication of substance-induced condition: uncomplicated Qualified Code(s ): F10.230 - Alcohol dependence with withdrawal, uncomplicated (3) COPD (chronic obstructive pulmonary disease) Status: Chronic Qualifiers: COPD type: unspecified COPD Qualified Code(s): J44.9 - Chronic obstructive pulmonary disease, unspecified (4) HTN (hypertension) Status: Chronic Qualifiers: Hypertension type: essential hypertension Qualified Code(s): I10 - Essential (primary) hypertension (5) Anxiety and depression Status: Chronic (6) Chest pain Status: Acute Qualifiers: Chest pain type: unspecified Qualified Code(s): R07.9 - Chest pain, unspecified - Time Spent With Patient Total time spent is greater than 50% in coordination of care (as documented) at patient's floor/unit and/or counseling patient:
[2017-11-20] MEDS ORDERED: Ondansetron 4 MG/2 ML VIAL IVP PRN (19:51)
[2017-11-21 04:46] LABS: Hematocrit 37.3 % (35.3-44.9); Hemoglobin 12.1 g/dL (11.5-15.4); Mean Corpuscular HGB Conc 32.4 g/dL (31.6-35.5); Mean Corpuscular Hemoglobin 29.4 pg (28.0-33.3); Mean Corpuscular Volume 90.8 fL (83.0-100.0); Mean Platelet Volume 9.4 fL (9.4-12.4); Platelet Count 262 K/mcL (140-400); Red Blood Count 4.11 M/mcL (3.82-4.97)
[2017-11-21 05:06] LABS: BUN/Creatinine Ratio 20 (6-26); Blood Urea Nitrogen 13 mg/dL (6-20); Calcium 8.6 mg/dL (8.6-10.3); Carbon Dioxide 24 mEq/L (23-29); Chloride 108 mEq/L (98-107); Chol/HDL Ratio 3.5 (0-4.9); Cholesterol 182 mg/dL (< 200); Glucose 92 mg/dL (70-105); HDL Cholesterol 52 mg/dL (40-59); LDL Cholesterol,Calculated 109 mg/dL (0-99); Osmolality,Calculated 288 (280-300); Potassium 3.8 mEq/L (3.5-5.1); Sodium 139 mEq/L (136-145); Triglycerides 107 mg/dL (< 150); eGFR For African Americans > 60 (> 60); eGFR For Non-African Americans > 60 (> 60)
[2017-11-21] MEDS: *HR* Heparin 5,000 UNIT/ML VIAL SQ SCH (06:47)
[2017-11-21] MEDS ORDERED: Folic Acid 1 MG TABLET PO SCH (09:00)
[2017-11-21] MEDS ORDERED: Aspirin 81 MG TAB.CHEW PO SCH (09:00)
[2017-11-21] MEDS: Folic Acid 1 MG TABLET PO SCH (09:05)
[2017-11-21] MEDS: Vitamin B Complex/Vit C/Vit E 1 EACH TABLET PO SCH (09:05)
[2017-11-21] MEDS: Gabapentin 300 MG CAPSULE PO SCH ×3 (09:05→16:09)
[2017-11-21] MEDS: Thiamine (B-1) 100 MG TABLET PO SCH (09:06)
--- NOTE | 2017-11-21 14:32 | Discharge Summary ---
- NOTES TO OUTPATIENT PROVIDER Notes to Outpatient Provider: f/u with PCP within a week. Date of Encounter: 11/21/17 Time of Encounter: 14:27 - Discharge Diagnosis (1) Abdominal pain Priority: Primary Status: Resolved Qualifiers: Abdominal location: unspecified location Qualified Code(s): R10.9 - Unspecified abdominal pain (2) Alcohol withdrawal Priority: Primary Status: Acute Qualifiers: Complication of substance-induced condition: uncomplicated Qualified Code(s ): F10.230 - Alcohol dependence with withdrawal, uncomplicated (3) COPD (chronic obstructive pulmonary disease) Priority: Secondary Status: Chronic Qualifiers: COPD type: unspecified COPD Qualified Code(s): J44.9 - Chronic obstructive pulmonary disease, unspecified (4) HTN (hypertension) Priority: Secondary Status: Chronic Qualifiers: Hypertension type: essential hypertension Qualified Code(s): I10 - Essential (primary) hypertension (5) Anxiety and depression Priority: Secondary Status: Chronic (6) Chest pain Priority: Primary Status: Acute Qualifiers: Chest pain type: unspecified Qualified Code(s): R07.9 - Chest pain, unspecified Hospital course: Ms. Bo is a 57 year old female with past medical history of drug abuse, alcohol abuse, tobacco abuse, depression, and anxiety presented with chest pain after she came out of the Court. ACS was suspected and she was admitted as observation. Further workup including EKG and cardiac enzymes showed to be normal. She has low risk of ACS. And the chest pain is most likely due to stress/anxiety. She will be discharged home today with follow-up with primary care physician within a week. She also was referred to both inpatient and outpatient rehabilitation for drug abuse/alcohol abuse. Discharge discussed with: patient Time spent discussing smoking cessation with patient: more than 10 minutes - Time Spent with Patient Total time spent providing and/or coordinating discharge services: Less than 30 minutes - Discharge Medications Prescriptions: Simvastatin [Zocor] 40 mg PO HS #60 tablet Thiamine (B-1) [Vitamin B-1] 100 mg PO DAILY #60 tablet Home Medications: Folic Acid 1 mg PO DAILY #30 tablet 02/21/17 [Rx] Lisinopril [Zestril] 10 mg PO DAILY #30 tablet 02/21/17 [Rx] Omeprazole [PriLOSEC] 40 mg PO DAILY #30 capsule. 02/21/17 [Rx] Buspirone HCl [Buspar] 15 mg PO BID 11/20/17 [History] Gabapentin [Neurontin] 600 mg PO QID 11/20/17 [History] Paroxetine HCl [Paxil] 40 mg PO DAILY 11/21/17 [History] Propranolol HCl [Inderal LA] 120 mg PO DAILY 11/21/17 [History] Simvastatin [Zocor] 40 mg PO HS #60 tablet 11/21/17 [Rx] Thiamine (B-1) [Vitamin B-1] 100 mg PO DAILY #60 tablet 11/21/17 [Rx] Allergies/Adverse Reactions: 3 Allergy/AdvReac Type Severity Reaction Status Date / Time No Known Allergies Allergy Verified 11/20/17 15:54 Date of admission: 11/20/17 17:22 Primary care physician: Eyad Boo DO Consults: 11/21/17 10:12 Consult to Revenue Integrity Analyst [CONS] Routine Reason for SW Consult: alcohol withdrawal resources Anticipated date of discharge: 11/21/17 - Constitutional Vitals: Temp Pulse Resp BP Pulse Ox 97.6 F 70 16 104/67 99 11/21/17 11:11 11/21/17 11:11 11/21/17 11:11 11/21/17 11:11 11/21/17 11:11 General appearance: Present: cooperative, A&O X 3, no acute distress, answers questions appropriately Exam: PHYSICAL EXAMINATION: GENERAL APPEARANCE: The patient is alert, oriented and in no acute distress. HEENT: Head is normocephalic. The sinuses are nontender. Pupils are equal and reactive. The nares are patent. Oropharynx clear without lesions. NECK: Supple without lymphadenopathy. HEART: Regular rate and rhythm. LUNGS: No crackles or wheezes are heard. ABDOMEN: Soft, nontender, nondistended with good bowel sounds heard. Inguinal area is normal. EXTREMITIES: Without cyanosis, clubbing or edema. NEUROLOGICAL: Gross nonfocal. SKIN: Warm and dry without any rash. - Patient Status Disposition: Home, Self-Care Condition: Good Functional capacity at discharge: independent ambulation Overall status at discharge: patient is back to baseline - Discharge Instructions Follow Up With: Eyad Boo DO [Primary Care Provider] - - Diet and Activity Activity: increase activity as tolerated Diet: advance to your usual diet
[2017-11-21 15:46] VITALS: BP 159/100
--- NOTE | 2017-11-22 13:26 | Electrocardiograph Report ---
[address] [place], [place] [address] Test Date: 2017-11-20 Pat Name: Marline Bo Department: 103 Room: [facility] Gender: F Lead Php Developer: ARVIND : 1960 Requested By: Carl Rodriges Order Number: [id number] Reading MD: Quin Singh Measurements Intervals [place] Rate: 70 P: 45 DC: 127 QRS: 4 QRSD: 80 T: 53 QT: 386 QTc: 406 Interpretive Statements SINUS RHYTHM Electronically Signed On 11-22-2017 13:24:43 EDT by Quin Singh
== END 2017-11-21 19:38 | disposition home or self-care (01) ==
LOC: 3NENU 15:44 → EMEROO 15:44 → 3NENU 18:01
PROVIDERS: ADMIT Nurse Practitioner; ATTEND Internal Medicine

== ENCOUNTER 2018-05-17 19:44 | Inpatient (IN) ==
[2018-05-17] MEDS ORDERED: *HR* LORazepam 0.5 MG TABLET PO ONE (20:50)
[2018-05-17 20:57] LABS: Bilirubin,Urine Negative (Negative); Blood,Urine Negative (Negative); Clarity,Urine Clear (Clear); Color,Urine Yellow (Yellow); Glucose,Urine (UA) Normal (Normal); Ketones,Urine Negative (Negative); Leukocyte Esterase,Urine Trace (Negative); Nitrite,Urine Negative (Negative); PH,Urine 6.5 pH Units (5.0-8.0); Protein,Urine Negative (Neg-Trace); Urobilinogen,Urine Normal (Normal)
[2018-05-17 21:06] LABS: Amphetamine Screen,Urine Negative ng/mL (Cutoff=1000); Barbiturate Screen,Urine Negative ng/mL (Cutoff=200); Benzodiazepines Screen,Urine Negative ng/mL (Cutoff=200); Cannabinoid Screen,Urine Negative ng/mL (Cutoff = 50); Cocaine Screen,Urine Negative ng/mL (Cutoff= 300); Opiate Screen,Urine Negative ng/mL (Cutoff=300); Phencyclidine Screen,Urine Negative ng/mL (Cutoff=25)
[2018-05-17 21:10] LABS: Squamous Epithelial Cell,Urine Few per lpf (None-Few); WBC,Urine 0-3 per hpf (0-3)
[2018-05-17 22:10] LABS: Basophils # 0.1 K/mcL (0.0-0.2); Basophils % 1.3 %; Eosinophils # 0.7 K/mcL (0.0-0.6); Eosinophils % 8.6 %; Hematocrit 39.8 % (35.3-44.9); Hemoglobin 12.9 g/dL (11.5-15.4); Immature Granulocytes % 0.5 % (0-4); Lymphocytes # 2.4 K/mcL (0.6-4.6); Lymphocytes % 31.4 %; Mean Corpuscular HGB Conc 32.4 g/dL (31.6-35.5); Mean Corpuscular Hemoglobin 29.4 pg (28.0-33.3); Mean Corpuscular Volume 90.7 fL (83.0-100.0); Mean Platelet Volume 9.4 fL (9.4-12.4); Monocytes # 0.6 K/mcL (0.0-1.3); Neutrophils # 3.9 K/mcL (1.6-8.9); Platelet Count 293 K/mcL (140-400); Red Blood Count 4.39 M/mcL (3.82-4.97); Red Cell Distribution Width 12.9 % (11.5-14.5); Segmented Neutrophils % 50.2 %; White Blood Count 7.7 K/mcL (4.3-11.1)
[2018-05-17 22:30] LABS: Acetaminophen < 10 mcg/mL (10-20); BUN/Creatinine Ratio 11 (6-26); Blood Urea Nitrogen 8 mg/dL (6-20); Calcium 8.6 mg/dL (8.6-10.3); Carbon Dioxide 24 mEq/L (23-29); Chloride 102 mEq/L (98-107); Ethanol 199 mg/dL (Less than 10); Glucose 98 mg/dL (70-105); Osmolality,Calculated 274 (280-300); Salicylate < 2.5 mg/dL (15.0-30.0); Sodium 133 mEq/L (136-145); eGFR For African Americans > 60 (> 60); eGFR For Non-African Americans > 60 (> 60)
[2018-05-18] MEDS ORDERED: *HR* LORazepam 2 MG/ML VIAL IM PRN (06:13)
[2018-05-18] MEDS ORDERED: Haloperidol Lactate 5 MG/ML VIAL IM PRN (06:13)
[2018-05-18] MEDS ORDERED: Ibuprofen 400 MG TABLET PO PRN (06:13)
[2018-05-18] MEDS ORDERED: *HR* LORazepam 1 MG TABLET PO PRN (06:13)
[2018-05-18] MEDS ORDERED: Mag Hydrox/Al Hydrox/Simeth 30 ML UDC PO PRN (06:13)
[2018-05-18] MEDS ORDERED: haloperidoL 5 MG TABLET PO PRN (06:13)
[2018-05-18] MEDS ORDERED: MOM Conc 10 ML UD.LIQ PO PRN (06:13)
[2018-05-18] MEDS: Gabapentin 100 MG CAPSULE PO SCH ×2 (06:35→11:56)
[2018-05-18] MEDS: hydrOXYzine pamoate 25 MG CAPSULE PO PRN ×2 (06:35→17:26)
[2018-05-18] MEDS: Nicotine 21 MG PATCH.TD24 TD SCH (11:52)
[2018-05-18] MEDS: Verapamil ER (24 HR) 180 MG TABLET.ER PO SCH (11:53)
[2018-05-18] MEDS: PARoxetine 20 MG TABLET PO SCH (11:53)
[2018-05-18] MEDS: lisinopriL 20 MG TABLET PO SCH (11:54)
[2018-05-18] MEDS: Propranolol LA (24 HR) 60 MG CAP.SA.24H PO SCH (11:54)
[2018-05-18] MEDS: Gabapentin 300 MG CAPSULE PO SCH ×2 (15:23→20:16)
[2018-05-18] MEDS: traZODone 50 MG TABLET PO PRN (20:30)
[2018-05-19] MEDS: Nicotine 21 MG PATCH.TD24 TD SCH (08:44)
[2018-05-19] MEDS: Verapamil ER (24 HR) 180 MG TABLET.ER PO SCH (08:45)
[2018-05-19] MEDS: Propranolol LA (24 HR) 60 MG CAP.SA.24H PO SCH (08:45)
[2018-05-19] MEDS: hydrOXYzine pamoate 25 MG CAPSULE PO PRN ×2 (08:45→18:13)
[2018-05-19] MEDS: Gabapentin 300 MG CAPSULE PO SCH ×3 (08:45→20:08)
[2018-05-19] MEDS: lisinopriL 20 MG TABLET PO SCH (08:45)
[2018-05-19] MEDS: PARoxetine 20 MG TABLET PO SCH (08:45)
[2018-05-19] MEDS: traZODone 50 MG TABLET PO PRN (20:09)
[2018-05-20] MEDS: hydrOXYzine pamoate 25 MG CAPSULE PO PRN ×2 (08:41→20:43)
[2018-05-20] MEDS: lisinopriL 20 MG TABLET PO SCH (08:41)
[2018-05-20] MEDS: Verapamil ER (24 HR) 180 MG TABLET.ER PO SCH (08:41)
[2018-05-20] MEDS: Propranolol LA (24 HR) 60 MG CAP.SA.24H PO SCH (08:41)
[2018-05-20] MEDS: PARoxetine 20 MG TABLET PO SCH (08:41)
[2018-05-20] MEDS: Gabapentin 300 MG CAPSULE PO SCH ×3 (08:41→20:43)
[2018-05-20] MEDS: Nicotine 21 MG PATCH.TD24 TD SCH (08:41)
[2018-05-20] MEDS: traZODone 50 MG TABLET PO PRN (20:43)
[2018-05-21] MEDS: PARoxetine 20 MG TABLET PO SCH (08:44)
[2018-05-21] MEDS: Gabapentin 300 MG CAPSULE PO SCH ×3 (08:44→21:00)
[2018-05-21] MEDS: lisinopriL 20 MG TABLET PO SCH (08:44)
[2018-05-21] MEDS: Verapamil ER (24 HR) 180 MG TABLET.ER PO SCH (08:44)
[2018-05-21] MEDS: Propranolol LA (24 HR) 60 MG CAP.SA.24H PO SCH (08:46)
[2018-05-21] MEDS: Nicotine 21 MG PATCH.TD24 TD SCH (08:46)
[2018-05-21] MEDS: hydrOXYzine pamoate 25 MG CAPSULE PO PRN ×2 (10:09→15:03)
[2018-05-22] MEDS: PARoxetine 20 MG TABLET PO SCH (09:39)
[2018-05-22] MEDS: Verapamil ER (24 HR) 180 MG TABLET.ER PO SCH (09:39)
[2018-05-22] MEDS: lisinopriL 20 MG TABLET PO SCH (09:39)
[2018-05-22] MEDS: Gabapentin 300 MG CAPSULE PO SCH (09:39)
[2018-05-22] MEDS: Propranolol LA (24 HR) 60 MG CAP.SA.24H PO SCH (09:40)
[2018-05-22] MEDS: Nicotine 21 MG PATCH.TD24 TD SCH (09:43)
[2018-05-22] MEDS: hydrOXYzine pamoate 25 MG CAPSULE PO PRN (09:45)
[2018-05-22 10:04] VITALS: BP 152/84
== END 2018-05-22 12:07 ==
LOC: EMEROOARM 19:44 → 1ANU 05-18 05:59
PROVIDERS: ADMIT Psychiatry & Neurology Psychiatry; ATTEND Psychiatry & Neurology Psychiatry

== ENCOUNTER 2019-01-22 21:23 | Observation (INO) ==
[2019-01-22] MEDS ORDERED: 0.9 % Sodium Chloride 1,000 ML IVC ONE ×2 (22:11→23:17)
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
[2019-01-22 22:22] LABS: Basophils # 0.1 K/mcL (0.0-0.2); Basophils % 0.8 %; Eosinophils # 0.3 K/mcL (0.0-0.6); Hematocrit 34.2 % (35.3-44.9); Hemoglobin 10.7 g/dL (11.5-15.4); Immature Granulocytes % 0.6 % (0-4); Lymphocytes # 2.2 K/mcL (0.6-4.6); Mean Corpuscular HGB Conc 31.3 g/dL (31.6-35.5); Mean Corpuscular Hemoglobin 26.6 pg (28.0-33.3); Mean Corpuscular Volume 85.1 fL (83.0-100.0); Mean Platelet Volume 9.4 fL (9.4-12.4); Monocytes # 0.8 K/mcL (0.0-1.3); Neutrophils # 5.8 K/mcL (1.6-8.9); Platelet Count 326 K/mcL (140-400); Red Blood Count 4.02 M/mcL (3.82-4.97); Red Cell Distribution Width 17.6 % (11.5-14.5); Segmented Neutrophils % 62.6 %; White Blood Count 9.3 K/mcL (4.3-11.1)
[2019-01-22 22:46] LABS: BUN/Creatinine Ratio 16 (6-26); Blood Urea Nitrogen 44 mg/dL (6-20); Calcium 8.9 mg/dL (8.6-10.3); Carbon Dioxide 22 mEq/L (23-29); Chloride 103 mEq/L (98-107); Glucose 94 mg/dL (70-105); Osmolality,Calculated 293 (280-300); Phosphorous 5.2 mg/dL (2.7-4.5); Sodium 136 mEq/L (136-145); eGFR For African Americans 22 (> 60); eGFR For Non-African Americans 18 (> 60)
[2019-01-22 22:47] LABS: Troponin I < 0.03 ng/mL (< 0.04)
[2019-01-22 22:50] LABS: Bilirubin,Urine Small (Negative); Blood,Urine Negative (Negative); Clarity,Urine Clear (Clear); Color,Urine Yellow (Yellow); Glucose,Urine (UA) Normal (Normal); Ketones,Urine Negative (Negative); Leukocyte Esterase,Urine Large (Negative); Nitrite,Urine Negative (Negative); PH,Urine 5.5 pH Units (5.0-8.0); Protein,Urine 30 mg/dL (Neg-Trace); Specific Gravity,Urine 1.022 (1.010-1.025); Urobilinogen,Urine Normal (Normal)
[2019-01-22 22:52] LABS: Bacteria,Urine None Seen per hpf (None-Few); Squamous Epithelial Cell,Urine Many per lpf (None-Few); WBC,Urine 50-100 per hpf (0-3)
[2019-01-22 23:00] LABS: Thyroid Stimulating Hormone 0.268 mcIU/mL (0.340-5.600)
[2019-01-22 23:01] LABS: Hyaline Casts,Urine Moderate per lpf (None-Few); RBC,Urine 0-3 per hpf (0-3)
[2019-01-22] MEDS ORDERED: cefTRIAXone 1,000 MG in 0.9 % Sodium Chloride Mini Bag 100 ML IVPB ONE (23:15)
[2019-01-22] MEDS ORDERED: Azithromycin 500 MG in D5% in Water 250 ML IVPB ONE (23:16)
--- NOTE | 2019-01-22 23:31 | Emergency Department Note ---
Disposition Clinical Impression: JACQUELINE (acute kidney injury) Pneumonia Qualifiers: Pneumonia type: due to unspecified organism Laterality: bilateral Lung loc ation: lower lobe of lung Qualified Code(s): J18.1 - Lobar pneumonia, unspecified organism UTI (urinary tract infection) Qualifiers: Indwelling urinary catheter type: unspecified Encounter type: initial encounter Disposition: Admitted As Inpatient Condition: Fair Time of Disposition: 23:47 General Adult HPI - General Chief complaint: ED General Medical Stated complaint: Low BP/dizzy/lightheaded Time Seen by Provider: 01/22/19 21:48 Source: patient Mode of arrival: EMS Limitations: no limitations Nursing Notes Reviewed: Yes Vital Signs Reviewed: Yes - History of Present Illness Pain Scale: 0 - Related Data Home Medications Medication Instructions Recorded Confirmed Advair 100-50 Diskus BID 01/22/19 Aspirin [Lo-Dose Aspirin EC] 81 mg PO DAILY 01/22/19 01/22/19 Lisinopril [Zestril] 5 mg PO BID 01/22/19 01/22/19 Loratadine [Allergy Relief] PRN 01/22/19 Metformin HCl [Fortamet] 250 mg PO DAILY 01/22/19 01/22/19 Metoprolol Succinate [Toprol Xl] 25 mg PO DAILY 01/22/19 01/22/19 Montelukast Sodium [Singulair] 10 mg PO 01/22/19 Raloxifene HCl 60 mg PO DAILY 01/22/19 01/22/19 Simvastatin [Zocor] 40 mg PO HS 01/22/19 01/22/19 Verapamil HCl [Verapamil ER] 180 mg PO DAILY 01/22/19 01/22/19 amLODIPine [Norvasc] 5 mg PO DAILY 01/22/19 01/22/19 Allergies Allergy/AdvReac Type Severity Reaction Status Date / Time No Known Allergies Allergy Verified 11/05/18 11:18 Constitutional: Reports: weakness. Denies: fever, chills ENT ED: Denies: congestion Cardiovascular: Denies: chest pain, palpitations, dyspnea on exertion, syncope Respiratory: Denies: cough, dyspnea, wheezes, hemoptysis, sputum production Gastrointestinal: Denies: abdominal pain, nausea, vomiting, diarrhea, constipation, hematemesis, melena, hematochezia Genitourinary: Denies: urgency, dysuria, frequency, hematuria Musculoskeletal: Denies: back pain, neck pain Integumentary: Denies: rash, abrasion Neurological: Reports: weakness, confusion, other (Lightheaded and dizziness). 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 - Social History Smoking Status: Current every day smoker Smokeless Tobacco Status: No Alcohol use: Reports: none Drug use: Reports: cocaine, methamphetamine Physical Exam - General Limitations: no limitations General appearance: alert, other (Speech is slightly slowed, but alert and oriented 3) Course Vital Signs Temperature 98 F 01/22/19 21:34 Pulse Rate 60 01/22/19 21:34 Respiratory Rate 18 01/22/19 21:34 Blood Pressure 84/53 01/22/19 21:34 O2 Sat by Pulse Oximetry 94 01/22/19 21:34 Temperature 98 F 01/22/19 21:55 Pulse Rate 63 01/23/19 00:03 Respiratory Rate 16 01/22/19 23:27 Blood Pressure 138/63 01/23/19 00:03 O2 Sat by Pulse Oximetry 96 01/22/19 21:55 Oxygen Delivery Oxygen Delivery Room Air Medical Decision Making - Medical Records Medical records reviewed: Yes I reviewed the patient's medical records. - Lab Data Lab results reviewed: Yes I reviewed the patient's lab results. Result diagrams: 01/22/19 22:00 01/22/19 22:00 Lab Results 01/22/19 01/22/19 01/22/19 Range/Units 22:00 22:00 22:05 WBC 9.3 (4.3-11.1) K/mcL RBC 4.02 (3.82-4.97) M/mcL Hgb 10.7 L (11.5-15.4) g/dL Hct 34.2 L (35.3-44.9) % MCV 85.1 (83.0-100.0) fL MCH 26.6 L (28.0-33.3) pg MCHC 31.3 L (31.6-35.5) g/dL RDW 17.6 H (11.5-14.5) % Plt Count 326 (140-400) K/mcL MPV 9.4 (9.4-12.4) fL Immature Gran % 0.6 (0-4) % Seg Neutrophils % 62.6 % Lymphocytes % 24.0 % Monocytes % 9.0 % Eosinophils % 3.0 % Basophils % 0.8 % Neutrophils # 5.8 (1.6-8.9) K/mcL Lymphocytes # 2.2 (0.6-4.6) K/mcL Monocytes # 0.8 (0.0-1.3) K/mcL Eosinophils # 0.3 (0.0-0.6) K/mcL Basophils # 0.1 (0.0-0.2) K/mcL Sodium 136 (136-145) mEq/L Potassium 4.0 (3.5-5.1) mEq/L Chloride 103 (98-107) mEq/L Carbon Dioxide 22 L (23-29) mEq/L BUN 44 H (6-20) mg/dL Creatinine 2.68 H (0.60-1.20) mg/dL Est GFR ( Amer) 22 L (> 60) Est GFR (Non-Af Amer) 18 L (> 60) BUN/Creatinine Ratio 16 (6-26) Glucose 94 (70-105) mg/dL POC Glucose 104 H (70-99) mg/dL Calculated Osmolality 293 (280-300) Lactic Acid (0.5-2.2) mmol/L Calcium 8.9 (8.6-10.3) mg/dL Phosphorus 5.2 H (2.7-4.5) mg/dL Magnesium 2.0 (1.6-2.6) mg/dL Troponin I < 0.03 (< 0.04) ng/mL TSH 0.268 L (0.340-5.600) mcIU/mL Urine Color (Yellow) Urine Clarity (Clear) Urine pH (5.0-8.0) pH Units Ur Specific [place] (1.010-1.025) Urine Protein (Neg-Trace) mg/dL Urine Glucose (UA) (Normal) mg/dL Urine Ketones (Negative) mg/dL Urine Blood (Negative) Urine Nitrite (Negative) Urine Bilirubin (Negative) Urine Urobilinogen (Normal) mg/dL Ur Leukocyte Esterase (Negative) Urine Microscopic RBC (0-3) per hpf Urine Microscopic WBC (0-3) per hpf Ur Squamous Epith Cells (None-Few) per lpf Urine Bacteria (None-Few) per hpf Hyaline Casts (None-Few) per lpf Ur Culture Indicated? (NO) 01/22/19 01/22/19 Range/Units 22:40 23:36 WBC (4.3-11.1) K/mcL RBC (3.82-4.97) M/mcL Hgb (11.5-15.4) g/dL Hct (35.3-44.9) % MCV (83.0-100.0) fL MCH (28.0-33.3) pg MCHC (31.6-35.5) g/dL RDW (11.5-14.5) % Plt Count (140-400) K/mcL MPV (9.4-12.4) fL Immature Gran % (0-4) % Seg Neutrophils % % Lymphocytes % % Monocytes % % Eosinophils % % Basophils % % Neutrophils # (1.6-8.9) K/mcL Lymphocytes # (0.6-4.6) K/mcL Monocytes # (0.0-1.3) K/mcL Eosinophils # (0.0-0.6) K/mcL Basophils # (0.0-0.2) K/mcL Sodium (136-145) mEq/L Potassium (3.5-5.1) mEq/L Chloride (98-107) mEq/L Carbon Dioxide (23-29) mEq/L BUN (6-20) mg/dL Creatinine (0.60-1.20) mg/dL Est GFR ( Amer) (> 60) Est GFR (Non-Af Amer) (> 60) BUN/Creatinine Ratio (6-26) Glucose (70-105) mg/dL POC Glucose (70-99) mg/dL Calculated Osmolality (280-300) Lactic Acid 0.4 L (0.5-2.2) mmol/L Calcium (8.6-10.3) mg/dL Phosphorus (2.7-4.5) mg/dL Magnesium (1.6-2.6) mg/dL Troponin I (< 0.04) ng/mL TSH (0.340-5.600) mcIU/mL Urine Color Yellow (Yellow) Urine Clarity Clear (Clear) Urine pH 5.5 (5.0-8.0) pH Units Ur Specific [place] 1.022 (1.010-1.025) Urine Protein 30 H (Neg-Trace) mg/dL Urine Glucose (UA) Normal (Normal) mg/dL Urine Ketones Negative (Negative) mg/dL Urine Blood Negative (Negative) Urine Nitrite Negative (Negative) Urine Bilirubin Small H (Negative) Urine Urobilinogen Normal (Normal) mg/dL Ur Leukocyte Esterase Large H (Negative) Urine Microscopic RBC 0-3 (0-3) per hpf Urine Microscopic WBC 50-100 H (0-3) per hpf Ur Squamous Epith Cells Many H (None-Few) per lpf Urine Bacteria None Seen (None-Few) per hpf Hyaline Casts Moderate H (None-Few) per lpf Ur Culture Indicated? YES A (NO) - Radiology Data Radiology results reviewed: Yes I reviewed the patient's radiology results. Chest X-Ray 01/22/19 22:12 IMPRESSION: Ill-defined increased density is noted in both lung bases just above the diaphragm. This is nonspecific and may represent atelectasis. Pneumonia would be difficult to exclude. Findings are not diagnostic of edema D/ / Jakub Tirado / Jakub Tirado Interpreting Provider: Jakub Tirado Head CT 01/22/19 22:12 IMPRESSION: No acute intracranial abnormality detected. Air-fluid levels within the maxillary sinuses bilaterally. Correlate with clinical evidence of sinusitis. D/ / Stephen Rich MD / Stephen Rich MD Interpreting Provider: Stephen Rich MD - EKG Data EKG #1 EKG attestation: Yes I reviewed and interpreted this EKG. EKG results narrative: EKG shows a sinus bradycardia with ventricular rate of 56. No ST segment elevation or depression. No ectopy. Critical Care Time Critical Care Time: Yes Total Critical Care Time: 35 Attestation: Critical care performed: Time is exclusive of separately billable procedures. Time includes: direct patient care, patient reassessment, coordination of patient care, interpretation of data (laboratory data, radiology data, and respiratory data), review of patient's medical records, medical consultation and documentation of patient care. Procedures included in critical care time: Procedures excluded from critical care time: Attestation Statement - Attestation Attestation: I, Mumtaz Ward MD, personally evaluated this patient and discussed their management with the resident physician. I reviewed the resident's note and agree with the documented findings, medical decision making, and plan of care. I reviewed the residents documentation and agree with the residents assessment and plan of care. I have personally had face to face time with the patient. I personally supervised and was present for the ellison/critical portions of the following procedures completed by the resident: EKG interpretation. 58-year-old female presents to the emergency department with a complaint of having low blood pressure and dizziness which started after she had a total dental extraction on Friday. She has not noticed any chills or fever. She is on blood pressure medications which she has continued to take. Her systolic blood pressure today was 90. Planes of dizziness which she describes as just feeling like she is going to pass out. She denies any vertigo symptoms. No actual syncope. No chest pain or shortness of breath. She has had a bed productive cough with white sputum but has recently started getting brown in color over the past day or 2. No nausea or vomiting. No diarrhea. No melena, hematemesis, or hematochezia. No dysuria or gross hematuria. No increased urinary frequency. No flank pain. On examination patient is a well-developed well-nourished female in no acute distress. She is alert and oriented 3. There is no cyanosis or diaphoresis. Multiple upper and lower bilateral dental extraction sites look good. She does have some resolving facial bruising from the procedure. No facial swelling or redness. Breath sounds are decreased but equal bilaterally with no definite rales or wheezes noted. Heart is regular with a mild bradycardia. Abdomen is soft and nontender with normal bowel sounds. No pedal edema. Labs reviewed. No leukocytosis. Patient does have a significant acute kidney injury with creatinine of 2.68. 2 months ago creatinine was 1.02. She does have 50-100 WBCs and large leukocyte esterase in the urine but no bacteria noted. Head CT negative. Chest x-ray shows bibasilar opacities, atelectasis versus pneumonia. I did review the films personally and compared to prior chest x-ray and this appears to me to be more likely bibasilar pneumonia. EKG shows a sinus bradycardia with ventricular rate of 56. No ST segment elevation or depression. No ectopy. Blood cultures obtained. IV Rocephin and Zithromax initiated to cover both community-acquired pneumonia and UTI. Patient received normal saline bolus with good improvement in her blood pressure up to 118/76. The hospitalist, Dr. uLo, was consulted and accepted admission of the patient.
[2019-01-23] MEDS ORDERED: Naloxone 0.4 MG/ML INJ IVP PRN (01:50)
[2019-01-23] MEDS ORDERED: 0.9 % Sodium Chloride 1,000 ML IVC SCH (02:00)
--- NOTE | 2019-01-23 02:00 | Internal Med History&Physical ---
Date of Encounter: 01/23/19 Time of Encounter: 01:58 Internal Medicine - H&P: HPI Chief complaint: Low BP/Dizziness History of present illness: Ms. Bo is a 58 year old female with past medical history of ETOH dependence, major depression, anxiety, hard of hearing (wears hearing aide), COPD, current smoker, and osteoporosis presented with symptoms of dizziness/lightheadedness and some confusion. Patient states that 5 days ago she had dental work performed involving removal of her upper and lower teeth. Since procedure patient has been having episodes of near syncope reporting generalized lightheadedness and dizziness. No reports of syncopal episode. Symptoms appear to be exacerbated when she stands up, resolves after a few seconds. [facility] She states that a staff member there was concerned regarding low blood pressure readings she was obtaining. She states that her systolic blood pressure was around 86 and recommended she come in for evaluation. Patient states that she has been eating and drinking well si nce the surgery. Denies any nausea, vomiting or diarrhea. Symptoms became worse today associated with increased confusion and reported an incident in which was having difficulty finding words. She endorses a several week history of cough with productive of brownish sputum. No reports of chest pain,shortness of breath, fever or chills. No reports of sick contacts. Denies dysuria, frequency or urgency. No reports of history of blood clots. Patient has been taking Vicodin following her surgery reporting taking a total of 2 pills. Patient has been sober for 8 months regarding both alcohol and cocaine abuse. On initial assessment in the ED patient was alert oriented 3, nonfocal on exami nation but was slow in response. Initial vitals were notable for mild hypotension with systolic blood pressure in the 80s to 90s. Heart rate in the 60s. CT scan of the head showed no acute intracranial abnormality. Laboratory workup was notable for elevation patient's creatinine concerning for acute kidney injury. Patient received fluid bolus in the ED with improvement in blood pressure response. A chest x-ray was performed concern for bilateral lobe pneumonia. Additionally, UTI suspected in light of a UA positive for leukocyte esterase and WBCs. Past Med Surg Social Fam HX - Past Medical History Medical history: COPD, hyperlipidemia, hypertension, osteoporosis Additional medical history: raynauds Psychiatric history: anxiety, depression, prior suicide attempt, previous psychiatric hospitalization - Past Surgical History Surgical History: other Additional surgical history: tubal, teeth removal - Social History Smoking Status: Current every day smoker Smokeless Tobacco Status: No Alcohol use: none Drug use: cocaine, methamphetamine - Family History Father Adopted: No Living Status: Hx Family Cardiac Disorders: Yes Hx Family Respiratory Disorders: Yes Hx Family Cancer: Yes (lung) Mother Living Status: Still Living Internal Medicine - H&P: Meds Aspirin [Lo-Dose Aspirin EC] 81 mg PO DAILY 01/22/19 [History] Lisinopril [Zestril] 40 mg PO DAILY 01/22/19 [History] Verapamil HCl [Verapamil ER] 180 mg PO DAILY 01/22/19 [History] Albuterol Sulfate [Proair Respiclick] 90 mcg IH Q6H PRN 01/23/19 [History] Atorvastatin [Lipitor] 20 mg PO DAILY 01/23/19 [History] Baclofen 5 mg PO BID PRN 01/23/19 [History] Buspirone HCl [Buspar HCl] 10 mg PO TID 01/23/19 [History] Calcium Carbonate [Calcium] 600 mg PO BID 01/23/19 [History] Cetirizine HCl [Children's Cetirizine HCl] 10 mg PO DAILY 01/23/19 [History] Cholecalciferol (D-3) [Vitamin D] 1,000 unit PO DAILY 01/23/19 [History] Gabapentin [Neurontin] 800 mg PO Q6H 01/23/19 [History] PARoxetine HCl [Paroxetine HCl] 40 mg PO DAILY 01/23/19 [History] Propranolol HCl [Innopran Xl] 120 mg PO DAILY 01/23/19 [History] Ranitidine HCl [Heartburn Relief] 150 mg PO BID 01/23/19 [History] Sucralfate [Carafate] 1 gm PO QIDAC 01/23/19 [History] hydrOXYzine HCl [Hydroxyzine HCl] 25 mg PO BID PRN 01/23/19 [History] traZODone [TraZODone] 50 mg PO HS PRN 01/23/19 [History] Allergy/AdvReac Type Severity Reaction Status Date / Time No Known Allergies Allergy Verified 11/05/18 11:18 All Systems PM: A 10-system review of systems was performed and is negative for pertinent findings except as documented above in the HPI. - Constitutional Constitutional: no chills, no fever(s), no night sweats - EENT Eyes: no change in vision, no discharge, no pain, no photophobia Ears: no ear discharge, no ear pain, no tinnitus Nose, mouth and throat: no dysphagia, no nasal discharge, no neck pain, no sore throat - Cardiovascular Cardiovascular ROS IM: no chest pain, no diaphoresis, no dyspnea, no lightheadedness, no palpitations, no syncope - Respiratory Respiratory: no cough, no dyspnea, no wheezing, no excessive phlegm production - Gastrointestinal Gastrointestinal: no abdominal pain, no diarrhea, no hematemesis, no hematochezia, no melena, no nausea, no vomiting - Genitourinary Genitourinary: no change in urinary stream, no dysuria, no flank pain, no hematuria - Musculoskeletal Musculoskeletal ROS IM: no numbness, no tingling - Integumentary Integumentary IM: no rash, no unusual bruising - Neurological Neurological ROS: no confusion, no convulsions, no focal weakness, no numbness, no tingling, no tremor(s) - Hematologic/Lymphatic Hematologic/Lymphatic: no easy bruising - Constitutional Vitals: Temp Pulse Resp BP Pulse Ox 98 F 63 16 93/65 96 01/22/19 21:55 01/23/19 00:03 01/23/19 01:37 01/23/19 01:37 01/22/19 21:55 Exam: General: Alert and oriented 3 lying in bed in no acute distress Skin:Normal color, no rash, no lesions. HEENT:EOM, pupils equal, round and reactive. Cardiovascular:Normal S1 & S2, no rubs, murmurs or gallops. No JVD. Pulse regular. Lungs:Normal breath sounds, no wheezes or crackles. Abdomen:Soft, non-tender, no rigidity. Extremities:No deformity, no edema or tenderness, no joint swelling or clubbing. Neurological:Normal cognition and motor skills. Neurologic exam nonfocal Pulses:Carotid and radial pulses normal +2. Rest of the physical exam is non contributory Internal Med - H&P Results - Labs CBC & Chem 7: 01/23/19 06:24 01/23/19 06:24 Labs: Short CBC 01/22/19 Range/Units 22:00 WBC 9.3 (4.3-11.1) K/mcL Hgb 10.7 L (11.5-15.4) g/dL Hct 34.2 L (35.3-44.9) % Plt Count 326 (140-400) K/mcL Neutrophils # 5.8 (1.6-8.9) K/mcL BMP 01/22/19 22:00 Sodium 136 Potassium 4.0 Chloride 103 Carbon Dioxide 22 L BUN 44 H Creatinine 2.68 H Glucose 94 Calcium 8.9 Cardiac Enzymes 01/22/19 Range/Units 22:00 Troponin I < 0.03 (< 0.04) ng/mL Urine 01/22/19 Range/Units 22:40 Urine Color Yellow (Yellow) Urine Clarity Clear (Clear) Urine pH 5.5 (5.0-8.0) pH Units Ur Specific [place] 1.022 (1.010-1.025) Urine Protein 30 H (Neg-Trace) mg/dL Urine Glucose (UA) Normal (Normal) mg/dL - Impressions ITS Impressions Chest X-Ray 01/22/19 22:12 IMPRESSION: Ill-defined increased density is noted in both lung bases just above the diaphragm. This is nonspecific and may represent atelectasis. Pneumonia would be difficult to exclude. Findings are not diagnostic of edema D/ / Jakub Tirado / Jakub Tirado Interpreting Provider: Jakub Tirado Head CT 01/22/19 22:12 IMPRESSION: No acute intracranial abnormality detected. Air-fluid levels within the maxillary sinuses bilaterally. Correlate with clinical evidence of sinusitis. D/ / Stephen Rich MD / Stephen Rich MD Interpreting Provider: Stephen Rich MD - Assessment and Plan (1) Near syncope Current Visit: Yes Status: Acute Assessment and plan: Patient presented with several day history of dizziness, lightheadedness and near syncopal episodes concerning for dehydration in the setting of hypotension and acute kidney injury. Patient is also been taking narcotics secondary to recent dental surgery. Also found to have possible underlying pneumonia and UTI. -Telemetry -We will check orthostatics -Continue fluid hydration -Treat pain with nonnarcotic medications -Continue treatment for pneumonia/UTI (2) JACQUELINE (acute kidney injury) Current Visit: Yes Status: Acute Assessment and plan: Patient presented with elevated creatinine of 2.68 with a previous baseline of approximately 0.90. Given the patient's hypotension and near syncopal episodes, suspect prerenal etiology. Patient received 2 L fluid bolus in the ED. -Continue fluid hydration -Repeat BMP in the morning -Monitor daily I's and O's -Hold nephrotoxic medications. -We will obtain urine sodium, urine osmolality, protein creatinine ratio and urine creatinine. -Consider renal ultrasound if kidney function does not improve with hydration. (3) Pneumonia Current Visit: Yes Status: Acute Assessment and plan: Patient presenting with several week history of cough productive of brownish sputum. Patient does not have fever or white count. However there was a ill-defined increased density noted in both lung bases which may represent atelectasis or pneumonia. Cultures were obtained. Patient is non-hypoxic. -We will continue patient on antibiotics for now with ceftriaxone and azithromycin. -We will obtain appropriate a procalcitonin level -Urine strep and Legionella antigens ordered. Qualifiers: Pneumonia type: due to unspecified organism Laterality: bilateral Lung location: lower lobe of lung Qualified Code(s): J18.1 - Lobar pneumonia, unspecified organism (4) UTI (urinary tract infection) Current Visit: Yes Status: Acute Assessment and plan: Patient found to have a urinalysis suggestive of UTI. Patient however denies any frequency, urgency, or dysuria. There was mild suprapubic tenderness on palpation of the abdomen, however, patient stated that she really needed to void at the time. -Follow-up urine cultures -Patient currently receiving antibiotics for treatment of pneumonia which will also treat possible UTI. Qualifiers: Indwelling urinary catheter type: unspecified Encounter type: initial encounter Qualified Code(s): T83.511A - Infection and inflammatory reaction due to indwelling urethral catheter, initial encounter; N39.0 - Urinary tract infection, site not specified (5) Acute encephalopathy Current Visit: Yes Status: Acute Assessment and plan: Acute encephalopathy characterized by confusion. Patient appears to be at baseline. Physical exam was nonfocal. CT scan of the head showed no acute intracranial abnormality. Etiology includes hypotension, uremia or side effect of patient's narcotic use. We will continue to monitor. Will give patient nonnarcotic pain regimen. (6) COPD (chronic obstructive pulmonary disease) Current Visit: No Status: Chronic Assessment and plan: No evidence of an acute exacerbation. Continue any home inhalers. Qualifiers: COPD type: unspecified COPD Qualified Code(s): J44.9 - Chronic obstructive pulmonary disease, unspecified (7) DVT prophylaxis Current Visit: No Status: Acute Assessment and plan: Subcutaneous heparin - Time Spent With Patient Total time spent is greater than 50% in coordination of care (as documented) at patient's floor/unit and/or counseling patient:
[2019-01-23] MEDS ORDERED: D5% in Water 1,000 ML IVC PRN (02:22)
[2019-01-23] MEDS ORDERED: *HR* Dextrose 50 % in Water (Syg) 50 ML SYRINGE IVP PRN (02:22)
[2019-01-23] MEDS ORDERED: Dextrose Gel 15 GM/37.5 ML TUBE PO PRN ×2 (02:22)
[2019-01-23] MEDS: *HR* Heparin 5,000 UNIT/ML VIAL SQ SCH ×3 (05:07→21:40)
[2019-01-23] MEDS: Azithromycin 500 MG in D5% in Water 250 ML IVPB SCH (05:09)
[2019-01-23] MEDS: Insulin LISPRO 300 UNITS/3 ML VIAL SQ SCH ×4 (05:10→16:11)
[2019-01-23 07:05] LABS: Hematocrit 33.8 % (35.3-44.9); Hemoglobin 10.5 g/dL (11.5-15.4); Mean Corpuscular HGB Conc 31.1 g/dL (31.6-35.5); Mean Corpuscular Hemoglobin 27.1 pg (28.0-33.3); Mean Corpuscular Volume 87.3 fL (83.0-100.0); Mean Platelet Volume 9.4 fL (9.4-12.4); Platelet Count 273 K/mcL (140-400); Red Blood Count 3.87 M/mcL (3.82-4.97); Red Cell Distribution Width 17.7 % (11.5-14.5); White Blood Count 7.5 K/mcL (4.3-11.1)
[2019-01-23 07:27] LABS: Albumin/Globulin Ratio 1.2 (1.1-2.2); Bilirubin,Total 0.2 mg/dL (0.3-1.0); Calcium 8.3 mg/dL (8.6-10.3); Globulin 2.6 g/dL (2.4-3.5); Magnesium 1.8 mg/dL (1.6-2.6); Potassium 3.6 mEq/L (3.5-5.1); Total Protein 5.6 g/dL (6.4-8.9)
[2019-01-23] MEDS: Aspirin Enteric Coated 81 MG Tablet PO SCH (08:17)
[2019-01-23] MEDS: Verapamil ER (24 HR) 180 MG TABLET.ER PO SCH (08:17)
[2019-01-23] MEDS: Ketorolac 15 MG/ML VIAL IVP PRN ×3 (08:20→22:11)
[2019-01-23] MEDS ORDERED: Metoprolol XL (24 HR) Succ 25 MG TAB.ER.24H PO SCH (09:00)
[2019-01-23 10:01] LABS: Estimated Average Glucose 131 mg/dl; Hemoglobin A1C 6.2 %
[2019-01-23 13:23] LABS: Protein/Creatinine Ratio,Urine 0.41 mg/mg (0.00-0.20); Sodium, Urine 60.4 mEq/L
--- NOTE | 2019-01-23 13:27 | Electrocardiograph Report ---
[place] [id number] Test Date: 2019-01-22 Pat Name: Marline Bo Department: EXAM2 Room: 2A Gender: F [employer] F[employer]: : [id number] Requested By: Leydi Villalobos Order Number: [id number] Reading MD: Quan Foy Measurements Intervals [place] Rate: 56 P: 56 NH: 179 QRS: -4 QRSD: 97 T: 56 QT: 468 QTc: 452 Interpretive Statements Sinus rhythm Abnormal R-wave progression, early transition Electronically Signed On 01-23-2019 13:26:40 EDT by Quan Foy
[2019-01-23] MEDS ORDERED: Baclofen 10 MG TABLET PO PRN (15:11)
[2019-01-23] MEDS: Gabapentin 400 MG CAPSULE PO SCH ×2 (16:09→21:40)
--- NOTE | 2019-01-23 17:05 | Event Note ---
Date of Encounter: 01/23/19 Time of Encounter: 17:01 Patient was seen earlier today by data sme Seen and examined at bedside. Says she feels about the same, maybe a little better (1) Near syncope Current Visit: Yes Status: Acute Assessment and plan: Patient presented with several day history of dizziness, lightheadedness and near syncopal episodes concerning for dehydration in the setting of hypotension and acute kidney injury. Patient is also been taking narcotics secondary to recent dental surgery. Also found to have possible underlying pneumonia and UTI. -Telemetry -We will check orthostatics -Continue fluid hydration -Treat pain with nonnarcotic medications -Continue treatment for pneumonia/UTI (2) JACQUELINE (acute kidney injury) Current Visit: Yes Status: Acute Assessment and plan: Patient presented with elevated creatinine of 2.68 with a previous baseline of approximately 0.90. Given the patient's hypotension and near syncopal episodes, suspect prerenal etiology. Patient received 2 L fluid bolus in the ED. -Continue fluid hydration -Repeat BMP in the morning -Monitor daily I's and O's -Hold nephrotoxic medications. -renal function improving with IV fluids (3) Pneumonia Current Visit: Yes Status: Acute Assessment and plan: Patient presenting with several week history of cough productive of brownish sputum. Patient does not have fever or white count. However there was a ill- defined increased density noted in both lung bases which may represent atelectasis or pneumonia. Cultures were obtained. Patient is non-hypoxic. -We will continue patient on antibiotics for now with ceftriaxone and azithromycin. -Urine strep and Legionella negative (4) UTI (urinary tract infection) Current Visit: Yes Status: Acute Assessment and plan: Patient found to have a urinalysis suggestive of UTI. Patient however denies any frequency, urgency, or dysuria. There was mild suprapubic tenderness on palpation of the abdomen, however, patient stated that she really needed to void at the time. -Follow-up urine cultures -Patient currently receiving antibiotics for treatment of pneumonia which will also treat possible UTI. (5) Acute encephalopathy Current Visit: Yes Status: Acute Assessment and plan: Acute encephalopathy characterized by confusion. Patient appears to be at baseline. Physical exam was nonfocal. CT scan of the head showed no acute intracranial abnormality. Etiology includes hypotension, uremia or side effect of patient's narcotic use. We will continue to monitor. Will give patient nonnarcotic pain regimen. Mentation back to baseline (6) DVT prophylaxis: heparin
[2019-01-23] MEDS: BUSPIRONE HCL 10 MG TABLET PO SCH (21:40)
[2019-01-23] MEDS: Famotidine 20 MG TABLET PO SCH (21:40)
[2019-01-23] MEDS ORDERED: Melatonin 3 MG TABLET PO PRN (21:55)
[2019-01-23] MEDS ORDERED: cefTRIAXone 1,000 MG in Water for inj. (sterile) 20 ML 10 ML IVPB SCH (23:00)
[2019-01-24] MEDS: Azithromycin 500 MG in D5% in Water 250 ML IVPB SCH (02:33)
[2019-01-24] MEDS: Gabapentin 400 MG CAPSULE PO SCH ×2 (02:33→08:20)
[2019-01-24] MEDS: *HR* Heparin 5,000 UNIT/ML VIAL SQ SCH (05:08)
[2019-01-24] MEDS: Insulin LISPRO 300 UNITS/3 ML VIAL SQ SCH ×2 (08:17→11:41)
[2019-01-24] MEDS: Aspirin Enteric Coated 81 MG Tablet PO SCH (08:19)
[2019-01-24] MEDS: Famotidine 20 MG TABLET PO SCH (08:20)
[2019-01-24] MEDS: Verapamil ER (24 HR) 180 MG TABLET.ER PO SCH (08:20)
[2019-01-24] MEDS: BUSPIRONE HCL 10 MG TABLET PO SCH (08:20)
[2019-01-24] MEDS: Ketorolac 15 MG/ML VIAL IVP PRN (08:23)
[2019-01-24] MEDS ORDERED: Propranolol LA (24 HR) 60 MG CAP.SA.24H PO SCH (09:00)
[2019-01-24 09:49] LABS: Hematocrit 33.8 % (35.3-44.9); Hemoglobin 10.7 g/dL (11.5-15.4); Mean Corpuscular HGB Conc 31.7 g/dL (31.6-35.5); Mean Corpuscular Volume 85.1 fL (83.0-100.0); Mean Platelet Volume 9.4 fL (9.4-12.4); Platelet Count 290 K/mcL (140-400); Red Blood Count 3.97 M/mcL (3.82-4.97); Red Cell Distribution Width 17.9 % (11.5-14.5)
[2019-01-24 10:07] LABS: Alanine Aminotransferase 8 Units/L (7-52); Albumin 3.1 g/dL (3.5-5.7); Albumin/Globulin Ratio 1.2 (1.1-2.2); Alkaline Phosphatase 86 Units/L (34-104); Aspartate Amino Transferase 11 Units/L (13-39); BUN/Creatinine Ratio 18 (6-26); Bilirubin,Total 0.3 mg/dL (0.3-1.0); Blood Urea Nitrogen 14 mg/dL (6-20); Calcium 8.4 mg/dL (8.6-10.3); Carbon Dioxide 24 mEq/L (23-29); Chloride 113 mEq/L (98-107); Globulin 2.6 g/dL (2.4-3.5); Glucose 89 mg/dL (70-105); Osmolality,Calculated 296 (280-300); Potassium 3.6 mEq/L (3.5-5.1); Sodium 143 mEq/L (136-145); Total Protein 5.7 g/dL (6.4-8.9); eGFR For African Americans > 60 (> 60); eGFR For Non-African Americans > 60 (> 60)
--- NOTE | 2019-01-24 11:24 | Discharge Summary ---
Orders not resulted at time of discharge: Pending orders 01/22/19 22:40 Culture,Urine [RM] Stat 01/22/19 23:36 Culture,Blood [BC] Stat 01/25/19 04:00 CMP [Comprehensive Metabolic Panel] AM 0400 Complete Blood Count w/o Diff [HEME] AM 0400 01/26/19 04:00 CMP [Comprehensive Metabolic Panel] AM 0400 Complete Blood Count w/o Diff [HEME] AM 0400 01/27/19 04:00 CMP [Comprehensive Metabolic Panel] AM 0400 Complete Blood Count w/o Diff [HEME] AM 0400 01/28/19 04:00 CMP [Comprehensive Metabolic Panel] AM 0400 Complete Blood Count w/o Diff [HEME] AM 0400 Date of Encounter: 01/24/19 Time of Encounter: 11:21 - Discharge Diagnosis (1) COPD (chronic obstructive pulmonary disease) Priority: Secondary Status: Chronic Qualifiers: COPD type: unspecified COPD Qualified Code(s): J44.9 - Chronic obstructive pulmonary disease, unspecified (2) Pneumonia Priority: Primary Status: Acute Qualifiers: Pneumonia type: due to unspecified organism Laterality: bilateral Lung location: lower lobe of lung Qualified Code(s): J18.1 - Lobar pneumonia, unspecified organism (3) JACQUELINE (acute kidney injury) Priority: Primary Status: Acute (4) Near syncope Priority: Primary Status: Acute (5) Acute encephalopathy Priority: Primary Status: Acute Hospital course: Ms. Bo is a 58 year old female with PMH depression, anxiety, HTN and COPD presented to [facility] on 01/23/19 with complaints of dizziness and lightheadedness and apparent confusion. She was found to have pneumonia and AK I therefore was hospitalized for IV ATB and fluids. Patient underwent head CT for confusion which was unremarkable. CXR was concerning for pneumonia and labs revealed a creatinine of 2.6. She was started on IV azithromycin and ceftriaxone for her pneumonia and IV fluids for the acute kidney injury. Urinary antigens were negative for strep pneumoniae/legionella. Her mentation improved with treating pneumonia and kidney function. Kidney function normalized at time of discharge. On day of discharge patient said she felt better and requested discharge home. Denied chest pain or shortness of breath. She did have a nonproductive cough. She was discharged home on 01/24/19 with Levaquin. She was advised to follow-up with her PCP within one week. - Time Spent with Patient Total time spent providing and/or coordinating discharge services: - Discharge Medications Prescriptions: New levoFLOXacin [Levaquin] 750 mg PO DAILY #5 tablet Continued Aspirin [Lo-Dose Aspirin EC] 81 mg PO DAILY Lisinopril [Zestril] 40 mg PO DAILY Verapamil HCl [Verapamil ER] 180 mg PO DAILY Baclofen 5 mg PO BID PRN PRN Reason: spasms Sucralfate [Carafate] 1 gm PO QIDAC Cholecalciferol (D-3) [Vitamin D] 1,000 unit PO DAILY Albuterol Sulfate [Proair Respiclick] 90 mcg IH Q6H PRN PRN Reason: Shortness Of Breath Cetirizine HCl [Children's Cetirizine HCl] 10 mg PO DAILY Calcium Carbonate [Calcium] 600 mg PO BID Atorvastatin [Lipitor] 20 mg PO DAILY traZODone [TraZODone] 50 mg PO HS PRN PRN Reason: Sleep PARoxetine HCl [Paroxetine HCl] 40 mg PO DAILY Ranitidine HCl [Heartburn Relief] 150 mg PO BID Buspirone HCl [Buspar HCl] 10 mg PO TID Propranolol HCl [Innopran Xl] 120 mg PO DAILY Gabapentin [Neurontin] 800 mg PO Q6H hydrOXYzine HCl [Hydroxyzine HCl] 25 mg PO BID PRN PRN Reason: Anxiety Home Medications: Aspirin [Lo-Dose Aspirin EC] 81 mg PO DAILY 01/22/19 [History] Lisinopril [Zestril] 40 mg PO DAILY 01/22/19 [History] Verapamil HCl [Verapamil ER] 180 mg PO DAILY 01/22/19 [History] Albuterol Sulfate [Proair Respiclick] 90 mcg IH Q6H PRN 01/23/19 [History] Atorvastatin [Lipitor] 20 mg PO DAILY 01/23/19 [History] Baclofen 5 mg PO BID PRN 01/23/19 [History] Buspirone HCl [Buspar HCl] 10 mg PO TID 01/23/19 [History] Calcium Carbonate [Calcium] 600 mg PO BID 01/23/19 [History] Cetirizine HCl [Children's Cetirizine HCl] 10 mg PO DAILY 01/23/19 [History] Cholecalciferol (D-3) [Vitamin D] 1,000 unit PO DAILY 01/23/19 [History] Gabapentin [Neurontin] 800 mg PO Q6H 01/23/19 [History] PARoxetine HCl [Paroxetine HCl] 40 mg PO DAILY 01/23/19 [History] Propranolol HCl [Innopran Xl] 120 mg PO DAILY 01/23/19 [History] Ranitidine HCl [Heartburn Relief] 150 mg PO BID 01/23/19 [History] Sucralfate [Carafate] 1 gm PO QIDAC 01/23/19 [History] hydrOXYzine HCl [Hydroxyzine HCl] 25 mg PO BID PRN 01/23/19 [History] traZODone [TraZODone] 50 mg PO HS PRN 01/23/19 [History] levoFLOXacin [Levaquin] 750 mg PO DAILY #5 tablet 01/24/19 [Rx] Allergies/Adverse Reactions: Allergy/AdvReac Type Severity Reaction Status Date / Time No Known Allergies Allergy Verified 11/05/18 11:18 Date of admission: 01/23/19 00:04 Primary care physician: Shyann Brooks Discharging clinician: Nicole Watson Anticipated date of discharge: 01/24/19 - Constitutional Vitals: Temp Pulse Resp BP Pulse Ox 98.3 F 65 17 143/80 96 01/24/19 07:52 01/24/19 07:52 01/24/19 07:52 01/24/19 07:52 01/24/19 08:27 General appearance: Present: A&O X 3, pleasant, no acute distress Exam: . - Head Head exam: Present: atraumatic, normocephalic - Eye Eye exam: Present: PERRL, conjuntiva pink, sclera anicteric Pupils: Present: PERRL - Neck Neck exam general surgery: Present: supple, trachea midline. Absent: lymphadenopathy - Respiratory Respiratory exam: Present: CTAB. Absent: accessory muscle use, rales, rhonchi, wheezes - Cardiovascular Cardiovascular exam: Present: RRR, +S1, +S2. Absent: diastolic murmur, gallop, rubs, systolic murmur - GI/Abdominal GI/Abdominal exam: Present: normal bowel sounds, soft, no peritoneal signs. Absent: distended, tenderness - Extremities Exam Extremities exam: Present: warm, radial pulses palpable and symmetrical. Absent: calf tenderness, cyanotic, pedal edema - Neurological Exam Neurological exam: Present: CN II-XII intact, oriented X3, no focal deficits. Absent: pronater drift, facial droop, speech deficit - Skin Skin exam: Present: dry, intact - Patient Status Disposition: Home, Self-Care Condition: Good Functional capacity at discharge: independent ambulation Overall status at discharge: patient is back to baseline - Discharge Instructions Instructions: Levofloxacin (By mouth), Community-acquired Pneumonia (DC) Follow Up With: Shyann Brooks [Primary Care Provider] - (Please call for follow-up appt within 1 week- Was unable to schedule an appointment at this time. However staff did leave a message at the office to please call the patient at home to schedule a follow up. Thank you!) - Diet and Activity Activity: resume usual activities as tolerated Diet: advance to your usual diet
[2019-01-24 11:40] VITALS: BP 156/90
== END 2019-01-24 12:45 | disposition home or self-care (01) ==
LOC: EMEROOARM 21:23 → 2ANU 21:23
PROVIDERS: ADMIT Internal Medicine; ATTEND Internal Medicine

== ENCOUNTER 2019-06-04 09:04 | Observation (INO) ==
[2019-06-04] MEDS ORDERED: Isovue-370 500 ML BOTTLE IVP ONE (09:20)
[2019-06-04 09:38] LABS: Hematocrit 35.2 % (35.3-44.9); Hemoglobin 10.8 g/dL (11.5-15.4); Mean Corpuscular HGB Conc 30.7 g/dL (31.6-35.5); Mean Corpuscular Hemoglobin 25.5 pg (28.0-33.3); Mean Corpuscular Volume 83.2 fL (83.0-100.0); Mean Platelet Volume 9.4 fL (9.4-12.4); Platelet Count 285 K/mcL (140-400); Red Blood Count 4.23 M/mcL (3.82-4.97); Red Cell Distribution Width 15.6 % (11.5-14.5); White Blood Count 8.1 K/mcL (4.3-11.1)
[2019-06-04 10:00] LABS: BUN/Creatinine Ratio 11 (6-26); Blood Urea Nitrogen 11 mg/dL (6-20); Carbon Dioxide 33 mEq/L (23-29); Chloride 103 mEq/L (98-107); Creatine Kinase 65 Units/L (30-223); Ethanol < 10 mg/dL (Less than 10); Glucose 91 mg/dL (70-105); Osmolality,Calculated 295 (280-300); Potassium 3.9 mEq/L (3.5-5.1); Sodium 143 mEq/L (136-145); Troponin I 0.03 ng/mL (< 0.04); eGFR For African Americans > 60 (> 60); eGFR For Non-African Americans 56 (> 60)
[2019-06-04 10:44] LABS: Bilirubin,Urine Negative (Negative); Blood,Urine Negative (Negative); Clarity,Urine Cloudy (Clear); Color,Urine Yellow (Yellow); Glucose,Urine (UA) Normal (Normal); Ketones,Urine Negative (Negative); Leukocyte Esterase,Urine Negative (Negative); Nitrite,Urine Negative (Negative); PH,Urine 7.5 pH Units (5.0-8.0); Protein,Urine Negative (Neg-Trace); Specific Gravity,Urine 1.014 (1.010-1.025); Urobilinogen,Urine Normal (Normal)
[2019-06-04 10:45] LABS: Bacteria,Urine None Seen per hpf (None-Few); Hyaline Casts,Urine None Seen per lpf (None-Few); RBC,Urine 0-3 per hpf (0-3); Squamous Epithelial Cell,Urine Moderate per lpf (None-Few); WBC,Urine 0-3 per hpf (0-3)
[2019-06-04 10:55] LABS: Amphetamine Screen,Urine Negative ng/mL (Cutoff=1000); Barbiturate Screen,Urine Negative ng/mL (Cutoff=200); Benzodiazepines Screen,Urine Negative ng/mL (Cutoff=200); Cannabinoid Screen,Urine Negative ng/mL (Cutoff = 50); Cocaine Screen,Urine Negative ng/mL (Cutoff= 300); Opiate Screen,Urine Positive ng/mL (Cutoff=300); Phencyclidine Screen,Urine Negative ng/mL (Cutoff=25)
[2019-06-04] MEDS ORDERED: Ibuprofen 400 MG TABLET PO PRN (12:31)
[2019-06-04] MEDS ORDERED: Acetaminophen 325 MG TABLET PO PRN (12:31)
[2019-06-04] MEDS ORDERED: Ondansetron 4 MG/2 ML VIAL IVP PRN (12:31)
[2019-06-04] MEDS ORDERED: Naloxone 0.4 MG/ML INJ IVP PRN (12:31)
[2019-06-04] MEDS ORDERED: Nicotine 2 MG GUM BC PRN (12:45)
[2019-06-04] MEDS: Nicotine 21 MG PATCH.TD24 TD SCH (14:53)
[2019-06-04] MEDS: 0.9 % Sodium Chloride 1,000 ML IVC SCH ×2 (14:54→23:22)
[2019-06-04] MEDS ORDERED: NON-FORMULARY MEDICATION 1 EACH EACH (Ranitidine Hcl [Heartburn Relief] 150 MG) PO SCH (21:00)
[2019-06-05 01:31] LABS: Hematocrit 32.8 % (35.3-44.9); Hemoglobin 10.4 g/dL (11.5-15.4); Mean Corpuscular HGB Conc 31.7 g/dL (31.6-35.5); Mean Corpuscular Hemoglobin 25.1 pg (28.0-33.3); Mean Corpuscular Volume 79.2 fL (83.0-100.0); Mean Platelet Volume 9.9 fL (9.4-12.4); Platelet Count 280 K/mcL (140-400); Red Blood Count 4.14 M/mcL (3.82-4.97); Red Cell Distribution Width 15.7 % (11.5-14.5); White Blood Count 7.2 K/mcL (4.3-11.1)
[2019-06-05 01:45] LABS: BUN/Creatinine Ratio 11 (6-26); Blood Urea Nitrogen 9 mg/dL (6-20); Calcium 8.2 mg/dL (8.6-10.3); Carbon Dioxide 26 mEq/L (23-29); Chloride 109 mEq/L (98-107); Glucose 88 mg/dL (70-105); Magnesium 1.8 mg/dL (1.6-2.6); Osmolality,Calculated 300 (280-300); Potassium 3.5 mEq/L (3.5-5.1); Sodium 146 mEq/L (136-145); eGFR For African Americans > 60 (> 60); eGFR For Non-African Americans > 60 (> 60)
[2019-06-05] MEDS ORDERED: Propranolol LA (24 HR) 60 MG CAP.SA.24H PO SCH (09:00)
[2019-06-05] MEDS ORDERED: Aspirin Enteric Coated 81 MG Tablet PO SCH (09:00)
[2019-06-05] MEDS ORDERED: Verapamil ER (24 HR) 180 MG TABLET.ER PO SCH (09:00)
[2019-06-05] MEDS: Nicotine 21 MG PATCH.TD24 TD SCH (09:12)
[2019-06-05] MEDS ORDERED: Baclofen 10 MG TABLET PO PRN (09:45)
[2019-06-05] MEDS ORDERED: Gabapentin 400 MG CAPSULE PO SCH (09:49)
[2019-06-05 11:09] VITALS: BP 157/94
== END 2019-06-05 13:41 | disposition left against medical advice (07) ==
LOC: EMEROOARM 09:04 → 3BNU 09:04
PROVIDERS: ADMIT Internal Medicine; ATTEND Internal Medicine